=== PATIENT | male | born 1940 | race Caucasian/White ===

== ENCOUNTER → 2017-09-14 10:58 | Emergency (ER) | payer MEDICARE ==
[~2017-09-14 10:58] MED LIST: NS 0.9% 1000 ML* 2,000 ML IV ONE
[2017-09-14 11:35] LABS: ABS Basophils 0 10^3/ul (0-0.2); ABS Eosinophils 0 10^3/ul (0-0.6); ABS Lymphocytes 0.1 10^3/ul (1.0-4.8); ABS Monocytes 0.3 10^3/ul (0-0.8); ABS Neutrophils 2.4 10^3/ul (1.5-7.7); ABS Nucleated RBC 0 10^3/ul; Eosinophil % 0.4 % (0-6); Hematocrit 40 % (42-52); Hemoglobin 13.7 g/dl (14.0-18.0); Lymphocyte % 3.1 % (25-47); Mean Corpuscular HGB Conc 34 g/dl (31-36); Mean Corpuscular Hemoglobin 31 pg (27-31); Mean Corpuscular Volume 90 fL (80-94); Mean Platelet Volume 6.8 um3 (7.4-10.4); Nucleated Red Blood Cells % 0.1; Platelet Count 257 10^3/ul (150-450); Red Blood Count 4.46 10^6/ul (4.00-5.40); Red Cell Distribution Width 15 % (10.5-15); White Blood Count 2.9 10^3/ul (3.5-10.8)
[2017-09-14 11:47] LABS: INR 1.04 (0.77-1.02)
[2017-09-14 11:56] LABS: EGFR Non-African American 78.4 (>60)
[2017-09-14 13:41] LABS: Urine Appearance Clear; Urine Blood Negative (Negative); Urine Color Yellow; Urine Ketones 1+ (Negative); Urine Protein 1+(30 mg/dL) (Negative); Urine Specific Gravity 1.025 (1.010-1.030); Urine Urobilinogen Negative (Negative)
[2017-09-14 15:00] VITALS: BP 116/70
--- NOTE | 2017-09-14 15:25 | ED ---
Nhung Daniel Edward, scribed for Wiliam Marina MD on 09/14/17 at 1111 . GI/ HPI - HPI Summary HPI Summary: pt woke up this morning and had 3 bowel accidents; after radiation this morning had another bowel accident on the way home. Associated sx: decreased appetite, weakness, intermittent lightheadedness. For the past 4 days the pt has had similar episodes each morning. Described as watery stool; no blood in stool. Pt is a colon-rectal CA patient. Pt finished 6 weeks radiation this morning. 2 weeks of chemo previously. FHx - CHF (grandfather). Urinary symptoms - pt is only able to urinate small amounts. - History of Current Complaint Time Seen by Provider: 09/14/17 11:05 Stated Complaint: WEAKNESS Hx Obtained From: Patient Onset/Duration: Started Days Ago Timing: Intermittent Associated Signs and Symptoms: Positive: Weakness, Diarrhea, Change in Appetite - decreased, Lightheadedness, Other: - urinary symptoms - small amounts - Allergy/Home Medications Allergies/Adverse Reactions: Allergies Allergy/AdvReac Type Severity Reaction Status Date / Time No Known Allergies Allergy Verified 10/31/15 15:15 Home Medications: Home Medications Gluc Ac/Chondro Ac A/Vit C/Mn [Glucosamine Chondroitin] 1 tab PO BID 09/14/17 [ History Confirmed 09/14/17] PMH/Surg Hx/FS Hx/Imm Hx Previously Healthy: No Cardiovascular History: Reports: Hx Hypertension - Cancer History Cancer Type, Location and Year: colon-rectal CA - Surgical History Surgery Procedure, Year, and Place: Hernia, Kidney stones removed Infectious Disease History: Denies: Traveled Outside the [place] in Last 30 Days - Family History Known Family History: Positive: Cardiac Disease - CHF - grandfather, Hypertension - Social History Alcohol Use: Occasionally Hx Substance Use: No Substance Use Type: Reports: None Hx Tobacco Use: No Smoking Status (MU): Never Smoked Tobacco Review of Systems Constitutional: Negative Eyes: Negative ENT: Negative Cardiovascular: Negative Respiratory: Negative Positive: Diarrhea. Negative: Abdominal Pain Genitourinary: Negative Musculoskeletal: Negative Skin: Negative Neurological: Other - lightheadedness Positive: Weakness Psychological: Normal All Other Systems Reviewed And Are Negative: Yes Physical Exam Triage Information Reviewed: Yes Vital Signs On Initial Exam: Initial Vitals Pulse BP Pulse Ox 105 150/88 92 09/14/17 11:03 09/14/17 11:03 09/14/17 11:03 Vital Signs Reviewed: Yes Appearance: Positive: No Pain Distress, Thin Skin: Positive: Warm, Skin Color Reflects Adequate Perfusion, Dry Head/Face: Positive: Normal Head/Face Inspection Eyes: Positive: EOMI, MAIN ENT: Positive: Normal ENT inspection Dental: Positive: Other - Oral mucosa dry Neck: Positive: Supple, Nontender Respiratory/Lung Sounds: Positive: Clear to Auscultation, Breath Sounds Present Cardiovascular: Positive: RRR Abdomen Description: Positive: Nontender, Soft Bowel Sounds: Positive: Present Musculoskeletal: Positive: Normal, Strength/ROM Intact Neurological: Positive: Sensory/Motor Intact, Alert, Oriented to Person Place, Time Psychiatric: Positive: Affect/Mood Appropriate Diagnostics - Vital Signs Vital Signs Temp Pulse Resp BP Pulse Ox 09/14/17 14:59 98.9 F 74 14 116/70 98 09/14/17 13:03 102 98/71 98 09/14/17 13:00 100 98 09/14/17 12:33 100 130/71 97 09/14/17 12:16 98 126/66 09/14/17 12:09 105 129/66 99 09/14/17 12:08 112 120/77 100 09/14/17 12:03 101 152/75 98 09/14/17 12:00 95 99 09/14/17 11:54 94 132/72 09/14/17 11:33 96 132/72 98 09/14/17 11:10 98.8 F 105 15 150/88 98 09/14/17 11:03 105 150/88 92 - Laboratory Lab Results: Lab Results 09/14/17 09/14/17 09/14/17 Range/Units 11:23 11:23 11:23 WBC 2.9 L (3.5-10.8) 10^3/ul RBC 4.46 (4.00-5.40) 10^6/ul Hgb 13.7 L (14.0-18.0) g/dl Hct 40 L (42-52) % MCV 90 (80-94) fL MCH 31 (27-31) pg MCHC 34 (31-36) g/dl RDW 15 (10.5-15) % Plt Count 257 (150-450) 10^3/ul MPV 6.8 L (7.4-10.4) um3 Neut % (Auto) 84.7 H (38-83) % Lymph % (Auto) 3.1 L (25-47) % [place] % (Auto) 11.5 H (0-7) % Eos % (Auto) 0.4 (0-6) % Baso % (Auto) 0.3 (0-2) % Absolute Neuts (auto) 2.4 (1.5-7.7) 10^3/ul Absolute Lymphs (auto) 0.1 L (1.0-4.8) 10^3/ul Absolute Monos (auto) 0.3 (0-0.8) 10^3/ul Absolute Eos (auto) 0 (0-0.6) 10^3/ul Absolute Basos (auto) 0 (0-0.2) 10^3/ul Absolute Nucleated RBC 0 10^3/ul Nucleated RBC % 0.1 INR (Anticoag Therapy) 1.04 H (0.77-1.02) APTT 29.3 (26.0-36.3) seconds Sodium (135-145) mmol/L Potassium (3.5-5.0) mmol/L Chloride (101-111) mmol/L Carbon Dioxide (22-32) mmol/L Anion Gap (2-11) mmol/L BUN (6-24) mg/dL Creatinine (0.67-1.17) mg/dL Est GFR ( Amer) (>60) Est GFR (Non-Af Amer) (>60) BUN/Creatinine Ratio (8-20) Glucose (70-100) mg/dL Lactic Acid (0.5-2.0) mmol/L Calcium (8.6-10.3) mg/dL Magnesium (1.9-2.7) mg/dL Total Bilirubin (0.2-1.0) mg/dL AST (13-39) U/L ALT (7-52) U/L Alkaline Phosphatase (34-104) U/L C-Reactive Protein (<8.01) mg/L B-Natriuretic Peptide ( - 100) pg/mL Total Protein (6.4-8.9) g/dL Albumin (3.2-5.2) g/dL Globulin (2-4) g/dL Albumin/Globulin Ratio (1-3) Lipase (11.0-82.0) U/L Urine Color Yellow Urine Appearance Clear Urine pH 5.0 (5-9) Ur Specific [place] 1.025 (1.010-1.030) Urine Protein 1+(30 mg/dl) A (Negative) Urine Ketones 1+ A (Negative) Urine Blood Negative (Negative) Urine Nitrate Negative (Negative) Urine Bilirubin Negative (Negative) Urine Urobilinogen Negative (Negative) Ur Leukocyte Esterase Negative (Negative) Urine WBC (Auto) Trace(0-5/hpf) (Absent) Urine RBC (Auto) Trace(0-2/hpf) (Absent) Urine Bacteria Absent (Absent) Urine Sperm Present A (Absent) Urine Glucose Negative (Negative) Urine Ascorbic Acid * A (Negative) 09/14/17 09/14/17 09/14/17 Range/Units 11:23 11:23 11:23 WBC (3.5-10.8) 10^3/ul RBC (4.00-5.40) 10^6/ul Hgb (14.0-18.0) g/dl Hct (42-52) % MCV (80-94) fL MCH (27-31) pg MCHC (31-36) g/dl RDW (10.5-15) % Plt Count (150-450) 10^3/ul MPV (7.4-10.4) um3 Neut % (Auto) (38-83) % Lymph % (Auto) (25-47) % [place] % (Auto) (0-7) % Eos % (Auto) (0-6) % Baso % (Auto) (0-2) % Absolute Neuts (auto) (1.5-7.7) 10^3/ul Absolute Lymphs (auto) (1.0-4.8) 10^3/ul Absolute Monos (auto) (0-0.8) 10^3/ul Absolute Eos (auto) (0-0.6) 10^3/ul Absolute Basos (auto) (0-0.2) 10^3/ul Absolute Nucleated RBC 10^3/ul Nucleated RBC % INR (Anticoag Therapy) (0.77-1.02) APTT (26.0-36.3) seconds Sodium 136 (135-145) mmol/L Potassium 3.5 (3.5-5.0) mmol/L Chloride 100 L (101-111) mmol/L Carbon Dioxide 22 (22-32) mmol/L Anion Gap 14 H (2-11) mmol/L BUN 28 H (6-24) mg/dL Creatinine 0.94 (0.67-1.17) mg/dL Est GFR ( Amer) 94.9 (>60) Est GFR (Non-Af Amer) 78.4 (>60) BUN/Creatinine Ratio 29.8 H (8-20) Glucose 143 H (70-100) mg/dL Lactic Acid 2.0 (0.5-2.0) mmol/L Calcium 9.3 (8.6-10.3) mg/dL Magnesium 1.9 (1.9-2.7) mg/dL Total Bilirubin 0.70 (0.2-1.0) mg/dL AST 23 (13-39) U/L ALT 36 (7-52) U/L Alkaline Phosphatase 77 (34-104) U/L C-Reactive Protein 6.95 (<8.01) mg/L B-Natriuretic Peptide 54 ( - 100) pg/mL Total Protein 7.0 (6.4-8.9) g/dL Albumin 3.9 (3.2-5.2) g/dL Globulin 3.1 (2-4) g/dL Albumin/Globulin Ratio 1.3 (1-3) Lipase 18 (11.0-82.0) U/L Urine Color Urine Appearance Urine pH (5-9) Ur Specific [place] (1.010-1.030) Urine Protein (Negative) Urine Ketones (Negative) Urine Blood (Negative) Urine Nitrate (Negative) Urine Bilirubin (Negative) Urine Urobilinogen (Negative) Ur Leukocyte Esterase (Negative) Urine WBC (Auto) (Absent) Urine RBC (Auto) (Absent) Urine Bacteria (Absent) Urine Sperm (Absent) Urine Glucose (Negative) Urine Ascorbic Acid (Negative) Result Diagrams: 09/14/17 11:23 09/14/17 11:23 Lab Statement: Any lab studies that have been ordered have been reviewed, and results considered in the medical decision making process. - EKG 1 EKG Interpretation: NSR @ [address], no ectopy GIGU Course/Dx - Course Course Of Treatment: DISCUSSED WITH DR PEÑA, RADIATION ONCOLOGY, AND DR JOSEPH, ONCOLOGY. PATIENT IMPROVED IN ED. DISCUSSED RESULTS WITH THE PATIENT AND FAMILY. DISCUSSED INCREASING IMMODIUM. PATIENT FEELS COMFORTABLE GOING HOME. RETURN TO ED IF WORSE. - Diagnoses Provider Diagnoses: Diarrhea, Dehydration - Physician Notifications Discussed Care Of Patient With: Jean Joseph Time Discussed With Above Provider: 11:25 Discharge - Sign-Out/Discharge Documenting (check all that apply): Discharge/Admit/Transfer - Discharge Plan Condition: Stable Disposition: HOME Patient Education Materials: Loperamide (By mouth), Dehydration (ED), Acute Diarrhea (ED) Referrals: Vinicio Montalvo MD [Primary Care Provider] - Faustino Peña MD [Medical Doctor] - Jean Joseph MD [Medical Doctor] - Additional Instructions: FOLLOW UP WITH YOUR DOCTOR. RETURN TO THE EMERGENCY DEPARTMENT FOR ANY WORSENING OF YOUR CONDITION OR QUESTIONS OR CONCERNS. - Billing Disposition and Condition Condition: STABLE Disposition: Home The documentation as recorded by the Nhung zarate Edward accurately reflects the service I personally performed and the decisions made by me, Wiliam Marina MD.
--- NOTE | 2017-09-15 08:46 | ED ---
Progress - Progress Note Progress Note: Patient's stool culture is positive by immunoassay. His is negative for C. difficile. Still pending Shiga toxins and ova and parasite tests. Patient presents with persistent diarrhea status post chemotherapy for colorectal cancer. He was advised to increase his Imodium. No change in treatment at this time. Course/Dx - Course Course Of Treatment: DISCUSSED WITH DR PEÑA, RADIATION ONCOLOGY, AND DR JOSEPH, ONCOLOGY. PATIENT IMPROVED IN ED. DISCUSSED RESULTS WITH THE PATIENT AND FAMILY. DISCUSSED INCREASING IMMODIUM. PATIENT FEELS COMFORTABLE GOING HOME. RETURN TO ED IF WORSE. - Diagnoses Provider Diagnoses: Diarrhea, Dehydration - Provider Notifications Time Discussed With Above Provider: 11:25 Discharge - Sign-Out/Discharge Documenting (check all that apply): Post-Discharge Follow Up - Discharge Plan Condition: Stable Disposition: HOME Patient Education Materials: Loperamide (By mouth), Dehydration (ED), Acute Diarrhea (ED) Referrals: Vinicio Montalvo MD [Primary Care Provider] - Faustino Peña MD [Medical Doctor] - Jean Joseph MD [Medical Doctor] - Additional Instructions: FOLLOW UP WITH YOUR DOCTOR. RETURN TO THE EMERGENCY DEPARTMENT FOR ANY WORSENING OF YOUR CONDITION OR QUESTIONS OR CONCERNS. - Billing Disposition and Condition Condition: STABLE Disposition: Home
== END | disposition home or self-care (01) ==
LOC: ED 10:58
DX: R19.7 Diarrhea, unspecified (principal); E86.0 Dehydration; Z85.038 Personal history of other malignant neoplasm of large intestine; I10 Essential (primary) hypertension
CPT/HCPCS: 36415; 80053; 81003; 81015; 82270; 83605; 83630; 83690; 83735; 83880; 85025; 85610; 85730; 86140; 87045; 87046; 87086; 87328; 87329; 87493; 87899; 93005; 96374; 99283

== ENCOUNTER 2017-09-17 09:01 | Inpatient (IN) | payer MEDICARE ==
[2017-09-17] MEDS ORDERED: NS 0.9% 1000 ML* 2,000 ML IV ONE (09:15)
[2017-09-17] MEDS ORDERED: Meclizine TAB* 12.5 MG PO ONE (09:15)
--- NOTE | 2017-09-17 09:43 | RAD ---
INDICATION: Head injury. COMPARISON: There are no prior studies available for comparison. TECHNIQUE: Contiguous axial sections of the brain were obtained from the skull base to the vertex without contrast. FINDINGS: The ventricles, cisterns and sulci are enlarged consistent with diffuse atrophy. No significant focal abnormality or mass effect is seen. There is no evidence for hemorrhage. No significant focal osseous abnormality is seen. The visualized portion of the paranasal sinuses and mastoid air cells appear clear. IMPRESSION: NO EVIDENCE FOR ACUTE INTRACRANIAL ABNORMALITY.
[2017-09-17 09:51] LABS: Hematocrit 36 % (42-52); Hemoglobin 12.4 g/dl (14.0-18.0); Mean Corpuscular HGB Conc 34 g/dl (31-36); Mean Corpuscular Hemoglobin 31 pg (27-31); Mean Corpuscular Volume 90 fL (80-94); Mean Platelet Volume 6.6 um3 (7.4-10.4); Platelet Count 166 10^3/ul (150-450); Red Blood Count 4.03 10^6/ul (4.00-5.40); Red Cell Distribution Width 15 % (10.5-15); White Blood Count 1.2 10^3/ul (3.5-10.8)
--- NOTE | 2017-09-17 09:51 | RAD ---
INDICATION: Trauma. COMPARISON: Comparison is made with a prior CT of the chest, abdomen and pelvis from July 06, 2017. TECHNIQUE: Contiguous axial sections were obtained from the skull base through the T3 vertebra. Images were reconstructed in the sagittal and coronal planes. FINDINGS: There is straightening of the cervical spine with loss of the normal cervical lordosis. No prevertebral soft tissue swelling is seen. There is a mild compression fracture of the superior endplate of the T3 vertebral body which is unchanged from the prior exam. No acute fracture is seen. At the C4-C5 level there is mild posterior uncinate process spurring. No significant spinal canal narrowing is seen. There is mild bilateral neural foraminal narrowing. At the C5-C6 level there is mild posterior uncinate process spurring. There is mild spinal canal narrowing and moderate bilateral neural foraminal narrowing. At the C6-C7 level there is mild posterior uncinate process spurring. No significant spinal canal narrowing is present. There is mild to moderate bilateral neural foraminal narrowing.. The lung apices appear clear. IMPRESSION: 1. NO EVIDENCE FOR ACUTE FRACTURE. THERE IS A MILD CHRONIC COMPRESSION FRACTURE OF THE SUPERIOR ENDPLATE OF THE T3 VERTEBRAL BODY WHICH IS UNCHANGED. 2. MILD TO MODERATE CERVICAL SPONDYLOSIS.
--- NOTE | 2017-09-17 09:52 | RAD ---
INDICATION: Syncope. COMPARISON: There are no prior studies available for comparison. TECHNIQUE: A portable view of the chest was obtained. The right costophrenic angle angle is cut off on the film. FINDINGS: Cardiac and mediastinal contours appear to be within normal limits. The lungs are underinflated and clear. No pleural effusion is seen. IMPRESSION: NO EVIDENCE FOR ACUTE DISEASE.
[2017-09-17 10:07] LABS: EGFR Non-African American 110.2 (>60)
[2017-09-17 10:09] LABS: INR 1.11 (0.77-1.02)
[2017-09-17 10:32] LABS: ABS Basophils 0 10^3/ul (0-0.2); ABS Eosinophils 0 10^3/ul (0-0.6); ABS Lymphocytes 0.1 10^3/ul (1.0-4.8); ABS Monocytes 0.5 10^3/ul (0-0.8); ABS Nucleated RBC 0 10^3/ul; Eosinophil % 1.3 % (0-6); Lymphocyte % 11.9 % (25-47); Nucleated Red Blood Cells % 0.2
[2017-09-17 10:33] LABS: ABS Neutrophils 0.6 10^3/ul (1.5-7.7)
--- NOTE | 2017-09-17 12:21 | RAD ---
INDICATION: Right ankle injury. TECHNIQUE: 3 views of the right ankle were obtained. FINDINGS: There is soft tissue swelling which is most prominent along the anterolateral aspect of the ankle. There is an oblique fracture of the distal fibula extending to the ankle joint. The distal fragment is slightly displaced one cortical diameter lateral relative to the proximal fragment. No other fractures are seen. IMPRESSION: OBLIQUE SLIGHTLY DISPLACED INTRA-ARTICULAR FRACTURE OF THE DISTAL FIBULA.
[2017-09-17 12:31] LABS: Urine Appearance Clear; Urine Blood 1+ (Negative); Urine Color Yellow; Urine Ketones 1+ (Negative); Urine Protein Negative (Negative); Urine Red Blood Cell 1+(3-5/hpf) (Absent); Urine Specific Gravity 1.013 (1.010-1.030); Urine Urobilinogen Negative (Negative); Urine White Blood Cell Absent (Absent)
[2017-09-17] MEDS ORDERED: oxyCODONE/Acetamin 5/325 MG* TAB PO PRN (14:14)
[2017-09-17] MEDS ORDERED: Al Hydrox/Mg Hydrox/Simet LIQ* 30 ML UDC PO PRN (14:14)
[2017-09-17] MEDS ORDERED: Ondansetron INJ* 2 MG/ML VIAL IV PRN (14:14)
[2017-09-17] MEDS ORDERED: Meclizine TAB* 12.5 MG PO PRN (14:16)
[2017-09-17] MEDS ORDERED: Magnesium Sulfate 1 GM IV* 1 GM/100 ML BAG IV ONE (14:17)
--- NOTE | 2017-09-17 16:04 | ED ---
Johnny Daniel Simon, scribed for Wiliam Marina MD on 09/17/17 at 0921 . Syncope/Near Syncope - HPI Summary HPI Summary: This patient is a 76 year old M presenting to [facility] with a chief complaint of syncope since 09/16/17. He endorses 3 syncopal episodes in the past 24 hours, with an associated minor right ankle injury. Most recent episode 0300 today. He states that this AM feels weak and unsteady. He endorses dry mouth, ankle pain and swelling, and generalized weakness. Pt denies diarrhea, nausea, VELASQUEZ, ear pain , melena, hematochezia, numbness, paresthesia, back pain, neck pain. Pt endorses episode of vertigo 3 years ago, notes may be similar sx. Pt describes sx as a spinning dizziness. He notes 2 minimal bowel movements since last ED visit. Ankle swelling. Endorses dry mouth. No dizziness currently. Pt endorses LOC 2x for an instant last night around 2300 and 0300. He stated he didnt feel strong enough to get up this AM. Pt added that he took meclizine yesterday , but is not sure if it improved sx. Pt endorses hitting back of head from 1st fall yesterday, and that ice reduced swelling in head. - History Of Current Complaint Chief Complaint: EDSyncope Time Seen by Provider: 09/17/17 09:02 Hx Obtained From: Patient Onset/Duration: Sudden Onset, Lasting Hours Timing: Intermittent Episode Lasting - an instant Context: Loss Of Consciousness Activity At Onset: Exertion Aggravating Factor(s): Position Change Alleviating Factor(s): Nothing Associated Signs And Symptoms: Decreased Oral Intake, Dizzy - "spinning", Weakness Related History: Similar Episode/Dx as - 3 years ago vertigo Frequency: Episodes x___ - 3, Episodes Lasting ____ (in Mins/Days/Weeks/Years) - "an instant" - Allergies/Home Medications Allergies/Adverse Reactions: Allergies Allergy/AdvReac Type Severity Reaction Status Date / Time No Known Allergies Allergy Verified 10/31/15 15:15 Home Medications: Home Medications Meclizine TAB* [Antivert 12.5 TAB*] 12.5 mg PO Q6HR PRN 09/17/17 [History Confirmed 09/17/17] Silver Sulfadiazine [Silvadene] 25 gm TOPICAL BID 09/17/17 [History Confirmed ] PMH/Surg Hx/FS Hx/Imm Hx Cardiovascular History: Reports: Hx Hypertension Sensory History: Denies: Hx Legally Blind Opthamlomology History: Denies: Hx Legally Blind EENT History: Denies: Hx Deafness Neurological History: Reports: Other Neuro Impairments/Disorders - vertigo - Cancer History Cancer Type, Location and Year: colon-rectal CA - Surgical History Surgery Procedure, Year, and Place: Hernia, Kidney stones removed Infectious Disease History: No Infectious Disease History: Denies: Traveled Outside the [place] in Last 30 Days - Family History Known Family History: Positive: Cardiac Disease - CHF - grandfather, Hypertension - Social History Alcohol Use: Occasionally Hx Substance Use: No Substance Use Type: Reports: None Hx Tobacco Use: No Smoking Status (MU): Never Smoked Tobacco Review of Systems Positive: Fatigue. Negative: Fever Negative: Ear Ache Negative: Diarrhea, Nausea, Other - melena, hematochezia Positive: Arthralgia - right foot and ankle, Myalgia - right foot and ankle, Edema Neurological: Other - dizziness/spinning Positive: Weakness, Syncope. Negative: Headache, Paresthesia, Numbness All Other Systems Reviewed And Are Negative: Yes Physical Exam - Summary Physical Exam Summary: General: well-appearing, no pain distress. Generalized weakness. Skin: warm, color reflects adequate perfusion, dry Head: normal Eyes: EOMI, MAIN ENT: dry oral mucosa Neck: supple, nontender Respiratory: CTA, breath sounds present Cardiovascular: RRR Abdomen: soft, nontender Bowel: present Musculoskeletal: strength/ROM intact. Lateral swelling right ankle and foot. Neurological: sensory/motor intact, A&O x3, no FND. Psychological: affect/mood appropriate Triage Information Reviewed: Yes Vital Signs On Initial Exam: Initial Vitals Temp Pulse Resp BP Pulse Ox 99.5 F 90 21 129/71 95 09/17/17 09:08 09/17/17 09:08 09/17/17 09:08 09/17/17 09:08 09/17/17 09:08 Vital Signs Reviewed: Yes Procedures - Splinting Right Lower Extremity Location: right ankle Hand-Made Type: fiberglass Splint: stirrup Pre-Proc Neuro Vasc Exam: normal Post-Proc Neuro Vasc Exam: normal, unchanged from pre-exam Diagnostics - Vital Signs Vital Signs Temp Pulse Resp BP Pulse Ox 09/17/17 09:08 99.5 F 90 21 129/71 95 - Laboratory Lab Results: Lab Results 09/17/17 09/17/17 09/17/17 Range/Units 09:40 09:40 09:40 WBC 1.2 L (3.5-10.8) 10^3/ul RBC 4.03 (4.00-5.40) 10^6/ul Hgb 12.4 L (14.0-18.0) g/dl Hct 36 L (42-52) % MCV 90 (80-94) fL MCH 31 (27-31) pg MCHC 34 (31-36) g/dl RDW 15 (10.5-15) % Plt Count 166 (150-450) 10^3/ul MPV 6.6 L (7.4-10.4) um3 Neut % (Auto) 50.1 (38-83) % Lymph % (Auto) 11.9 L (25-47) % [place] % (Auto) 36.4 H (0-7) % Eos % (Auto) 1.3 (0-6) % Baso % (Auto) 0.3 (0-2) % Absolute Neuts (auto) 0.6 L* (1.5-7.7) 10^3/ul Absolute Lymphs (auto) 0.1 L (1.0-4.8) 10^3/ul Absolute Monos (auto) 0.5 (0-0.8) 10^3/ul Absolute Eos (auto) 0 (0-0.6) 10^3/ul Absolute Basos (auto) 0 (0-0.2) 10^3/ul Absolute Nucleated RBC 0 10^3/ul Nucleated RBC % 0.2 Hem Pathologist Commnt Pending INR (Anticoag Therapy) 1.11 H (0.77-1.02) APTT 30.3 (26.0-36.3) seconds Sodium 136 (135-145) mmol/L Potassium 3.7 (3.5-5.0) mmol/L Chloride 101 (101-111) mmol/L Carbon Dioxide 29 (22-32) mmol/L Anion Gap 6 (2-11) mmol/L BUN 17 (6-24) mg/dL Creatinine 0.70 (0.67-1.17) mg/dL Est GFR ( Amer) 133.4 (>60) Est GFR (Non-Af Amer) 110.2 (>60) BUN/Creatinine Ratio 24.3 H (8-20) Glucose 119 H (70-100) mg/dL Lactic Acid (0.5-2.0) mmol/L Calcium 8.5 L (8.6-10.3) mg/dL Magnesium 1.8 L (1.9-2.7) mg/dL Total Bilirubin 0.50 (0.2-1.0) mg/dL AST 17 (13-39) U/L ALT 24 (7-52) U/L Alkaline Phosphatase 71 (34-104) U/L Total Creatine Kinase 52 (10-223) U/L CK-MB (CK-2) 1.8 (0.6-6.3) ng/mL Troponin I 0.00 (<0.04) ng/mL C-Reactive Protein 26.87 H (<8.01) mg/L Total Protein 6.0 L (6.4-8.9) g/dL Albumin 3.2 (3.2-5.2) g/dL Globulin 2.8 (2-4) g/dL Albumin/Globulin Ratio 1.1 (1-3) Lipase 11 (11.0-82.0) U/L TSH 0.91 (0.34-5.60) mcIU/mL Urine Color Urine Appearance Urine pH (5-9) Ur Specific [place] (1.010-1.030) Urine Protein (Negative) Urine Ketones (Negative) Urine Blood (Negative) Urine Nitrate (Negative) Urine Bilirubin (Negative) Urine Urobilinogen (Negative) Ur Leukocyte Esterase (Negative) Urine WBC (Auto) (Absent) Urine RBC (Auto) (Absent) Urine Bacteria (Absent) Urine Glucose (Negative) 09/17/17 09/17/17 Range/Units 09:40 12:14 WBC (3.5-10.8) 10^3/ul RBC (4.00-5.40) 10^6/ul Hgb (14.0-18.0) g/dl Hct (42-52) % MCV (80-94) fL MCH (27-31) pg MCHC (31-36) g/dl RDW (10.5-15) % Plt Count (150-450) 10^3/ul MPV (7.4-10.4) um3 Neut % (Auto) (38-83) % Lymph % (Auto) (25-47) % [place] % (Auto) (0-7) % Eos % (Auto) (0-6) % Baso % (Auto) (0-2) % Absolute Neuts (auto) (1.5-7.7) 10^3/ul Absolute Lymphs (auto) (1.0-4.8) 10^3/ul Absolute Monos (auto) (0-0.8) 10^3/ul Absolute Eos (auto) (0-0.6) 10^3/ul Absolute Basos (auto) (0-0.2) 10^3/ul Absolute Nucleated RBC 10^3/ul Nucleated RBC % Hem Pathologist Commnt INR (Anticoag Therapy) (0.77-1.02) APTT (26.0-36.3) seconds Sodium (135-145) mmol/L Potassium (3.5-5.0) mmol/L Chloride (101-111) mmol/L Carbon Dioxide (22-32) mmol/L Anion Gap (2-11) mmol/L BUN (6-24) mg/dL Creatinine (0.67-1.17) mg/dL Est GFR ( Amer) (>60) Est GFR (Non-Af Amer) (>60) BUN/Creatinine Ratio (8-20) Glucose (70-100) mg/dL Lactic Acid 1.2 (0.5-2.0) mmol/L Calcium (8.6-10.3) mg/dL Magnesium (1.9-2.7) mg/dL Total Bilirubin (0.2-1.0) mg/dL AST (13-39) U/L ALT (7-52) U/L Alkaline Phosphatase (34-104) U/L Total Creatine Kinase (10-223) U/L CK-MB (CK-2) (0.6-6.3) ng/mL Troponin I (<0.04) ng/mL C-Reactive Protein (<8.01) mg/L Total Protein (6.4-8.9) g/dL Albumin (3.2-5.2) g/dL Globulin (2-4) g/dL Albumin/Globulin Ratio (1-3) Lipase (11.0-82.0) U/L TSH (0.34-5.60) mcIU/mL Urine Color Yellow Urine Appearance Clear Urine pH 6.0 (5-9) Ur Specific [place] 1.013 (1.010-1.030) Urine Protein Negative (Negative) Urine Ketones 1+ A (Negative) Urine Blood 1+ A (Negative) Urine Nitrate Negative (Negative) Urine Bilirubin Negative (Negative) Urine Urobilinogen Negative (Negative) Ur Leukocyte Esterase Negative (Negative) Urine WBC (Auto) Absent (Absent) Urine RBC (Auto) 1+(3-5/hpf) A (Absent) Urine Bacteria Absent (Absent) Urine Glucose Negative (Negative) Result Diagrams: 09/17/17 09:40 09/17/17 09:40 Lab Statement: Any lab studies that have been ordered have been reviewed, and results considered in the medical decision making process. - Radiology CXR Xray Interpretation: No Acute Changes Radiology Interpretation Completed By: Radiologist - No evidence for acute disease. Dr. Marina has reviewed this report. Ankle Xray Interpretation: Positive (See Comments) Radiology Interpretation Completed By: Radiologist - OBLIQUE SLIGHTLY DISPLACED INTRA-ARTICULAR FRACTURE OF THE DISTAL FIBULA. Dr. Marina has reviewed this report. - CT C-spine CT Interpretation: Positive (See Comments) CT Interpretation Completed By: Radiologist - 1. NO EVIDENCE FOR ACUTE FRACTURE. THERE IS A MILD CHRONIC COMPRESSION FRACTURE OF THE SUPERIOR ENDPLATE OF THE T3 VERTEBRAL BODY WHICH IS UNCHANGED. 2. MILD TO MODERATE CERVICAL SPONDYLOSIS. Dr. Marina has reviewed this report. Brain CT Interpretation: No Acute Changes CT Interpretation Completed By: Radiologist - No evidence for acute intracranial abnormality. Dr. Marina has reviewed this report. - EKG 1026 Cardiac Rate: NL - 85 EKG Rhythm: Sinus Rhythm ST Segment: Normal Ectopy: None Course/Dx Course Of Treatment: RIGHT ANKLE SPLINTED WITH POSTERIOR AND STIRRUP SPLINTS. NEUROVASCULAR INTACT AFTER SPLINTING. PATIENT UNABLE TO SAFELY CARE FOR SELF AT HOME WITH GENERALIZED WEAKNESS AND RIGHT ANKLE FRACTURE. DISCUSSED WITH DR JOSEPH, ONCOLOGY. ADMIT HOSPITALIST. - Diagnoses Provider Diagnoses: Weakness, Closed right ankle fracture - Physician Notifications Discussed Care of Patient With: Jean Joseph Time Discussed With Above Provider: 12:25 Instructed by Provider To: Other - recommended admission to [facility]. Discharge - Sign-Out/Discharge Documenting (check all that apply): Discharge/Admit/Transfer - Discharge Plan Condition: Stable Disposition: ADMITTED TO [facility] - Billing Disposition and Condition Condition: STABLE Disposition: Admitted to [facility] Consult Consult: Accepted admission to [facility]. The documentation as recorded by the Johnny zarate Simon accurately reflects the service I personally performed and the decisions made by me, Wiliam Marina MD.
[2017-09-17] MEDS: NS 0.9% 1000 ML* 1,000 ML IV SCH (16:41)
--- NOTE | 2017-09-17 17:25 | HP ---
CC: Vinicio Montalvo MD; Jean Shipley MD * HISTORY AND PHYSICAL: DATE OF ADMISSION: 09/17/17 TIME OF EVALUATION: 1500. PRIMARY CARE PHYSICIAN: Vinicio Montalvo MD ONCOLOGIST: Jean Shipley MD CHIEF COMPLAINT: Syncopal episode. HISTORY OF PRESENT ILLNESS: This is a 76-year-old male with a past medical history of rectal cancer, status post chemo and radiation, who presents to the emergency room with several episodes of syncope. The patient states he lives alone and yesterday around 1 p.m., he was standing and he felt dizzy. He fell to the ground, he quickly came to, but noticed that he had pain in his right ankle. He was able to walk, but it was very difficult for him. Last evening, he had 2 to 3 times where he went to the bathroom and on return back from the bathroom, he became lightheaded, dizzy, and had another syncopal episode and fell to the ground on carpeted mamta. He crawled on all fours to his bed. This morning, when he woke up, he sat up in bed and he was concerned that he was not going to be able to ambulate due to how lightheaded and dizzy he felt and decided to call EMS for further evaluation. The patient states he just finished 6 weeks of radiation and chemotherapy on 09/14/17. He has suffered complication of melara to his groin, penis, and buttock region. He has had a significant weight loss of 30 pounds since his diagnosis in April and has had decrease in appetite. He is afraid to eat as he has had significant amount of diarrhea, which causes him a lot of discomfort. His last bowel movement was yesterday. No nausea or vomiting. His mouth sores have improved. He is having some urinary pressure, some discomfort, but he is not clear if it is related to radiation treatment. No fevers at home, no cough, no chest pain, no shortness of breath, no abdominal pain, no other rash. In the emergency room, the patient had labs, imaging. He was found to have a right distal fibular fracture. He had a posterior splint with side bars placed in the emergency room. He was given 2 L of fluids, 25 mg of meclizine, and referred to the hospitalist service for further evaluation. AST MEDICAL HISTORY: 1. History of rectal cancer diagnosed in April 2017, followed by Dr. Shipley, just completed chemo and radiation; complications are melara to his genitourinary region and buttocks from the radiation therapy. 2. Hypertension. 3. Hyperlipidemia. 4. Arthritis. MEDICATIONS: 1. Silvadene 25 g topical twice a day to affected areas. 2. Meclizine 12.5 mg every 6 hours as needed. 3. PreserVision AREDS 2 Softgels 1 cap p.o. b.i.d. 4. Lisinopril 10 mg p.o. daily. 5. Aspirin 81 mg daily. 6. Carafate suspension 10 mL p.o. t.i.d. 7. Glucosamine/chondroitin 1 tab p.o. b.i.d. 8. Atorvastatin 20 mg p.o. daily. ALLERGIES: No known drug allergies. FAMILY HISTORY: Reviewed and noncontributory. SOCIAL HISTORY: As mentioned, the patient lives alone. No history of tobacco, alcohol, or illicit drug use. His healthcare proxy is his , Sofya White. He states he is a DNR/DNI and completed his forms in the oncology office, which I do not see in our system, but would recommend Oncology obtain these. REVIEW OF SYSTEMS: A 14-point review of systems as mentioned in the HPI, otherwise negative. PHYSICAL EXAMINATION GENERAL: No acute distress, resting comfortably, although the patient is not able to really reposition due to significant melara in his buttock region. VITAL SIGNS: T-max 99.5, pulse rate 87, respiratory rate 17, oxygen saturation 94% on room air, and blood pressure 116/63. HEENT: Head: Normocephalic. Pupils are equal and reactive, anicteric. Oropharynx: His mucous membranes moist. He does have mild mucositis in the right lateral tongue region. NECK: Supple. No lymphadenopathy. RESPIRATORY: Diminished breath sounds. No wheezing, rhonchi, or rales. CARDIAC: Regular rate and rhythm. Soft systolic murmur heard throughout. ABDOMEN: Positive bowel sounds. Soft, nontender, nondistended. EXTREMITIES: The patient with a splint in his right lower extremity. Normal cap refill. Sensation intact and able to move his toes. NEUROLOGIC: Alert and oriented x3. No gross focal neurologic deficits. DERM: The patient with findings of excoriated skin in his bilateral groin, penis region. I did not visualize the buttocks due to the patient's inability to roll on to his side. DIAGNOSTIC STUDIES/LAB DATA: White count 1.2, hemoglobin 12.4, hematocrit 36, platelets 166, ANC is 0.6. INR is 1.11. Sodium 136, potassium 3.7, chloride 101, bicarb 29, BUN 17, creatinine 0.7, glucose 119, mag is 1.8. Troponin is 0. Albumin is 3.2, lipase 11. TSH 0.91. UA: Ketones +1, blood +1. Radiographic data: Head CT: No evidence for acute intracranial abnormality. Cervical spine CT: No evidence for acute fracture. There was mild chronic compression fracture of the superior endplate of the T3 vertebral body, which is unchanged. [id number]-[id number] cervical spondylosis. Chest x-ray: No evidence for acute disease. Ankle x-ray: Oblique, slightly displaced intraarticular fracture of the distal fibula. EKG shows normal sinus rhythm. ASSESSMENT AND PLAN: This is a 76-year-old male with a past medical history of rectal cancer, status post chemo and radiation, who presents to the emergency room with syncopal episode, suffering a right ankle fibular fracture. 1. Syncope. Assessment: The patient's history and physical are most consistent with vasovagal syncope in the setting of hypovolemia from his chemoradiation and decreased appetite. His initial troponin was negative and EKG is unremarkable. Plan: We will admit him to [address] [place] [address] with telemetry. We will repeat a troponin. We will hold off on pursuing an echo at this time and defer to Oncology if they feel that this is indicated. We will check a UA in the setting of his urinary symptoms and continue him on IV fluids. We will hold his lisinopril. The patient may no longer tolerate lisinopril in the setting of his significant weight loss and we will sign out to Oncology to take over service in the morning. 2. Right distal fibular fracture. Assessment: The patient had a splint placed in the emergency room. I did speak with Dr. Dobbs, who is going to follow up with him tomorrow. The concern is the patient may not be able to get around at home as he lives alone and has stairs. Depending on Ortho's input, the patient may need to go to rehab. 3. Rectal cancer. The patient has completed chemo and radiation. He is neutropenic, likely due to his chemotherapy. No findings of a documented fever here or at home. We will hold off on further workup at this time. No findings of a focal infection. We will continue him on the Silvadene for his melara secondary to the radiation and place a Wound Care consult for any further recommendations. 4. Hypertension. As mentioned, hold his lisinopril. 5. Hyperlipidemia. Continue his Lipitor. 6. FEN: Continue regular diet. 7. DVT prophylaxis: The patient scores high risk. We will place him on heparin subcu t.i.d. 8. Code status: He states he is a DNR/DNI. He has filled out these forms. Recommend Oncology followup as they may have his MOLST form in their office. PATIENT TIME: Greater than 50 minutes was spent doing history and physical, more than half the time was spent in direct patient contact. [id number]/[facility] #: [id number] MARKOS
--- NOTE | 2017-09-17 17:28 | RAD ---
INDICATION: Traumatic fracture of the right ankle status post external reduction. COMPARISON: Comparison is made with a prior study from approximately 5 hours earlier. TECHNIQUE: 2 views of the right ankle were obtained. FINDINGS: The bones are visualized through a fiberglass cast limiting the bony detail. Again note is made of an oblique intra-articular fracture of the distal fibula. The fracture fragments are slightly distracted. The distal fragment is displaced approximately 1 cortical diameter posterior relative to the proximal fragment. IMPRESSION: OBLIQUE SLIGHTLY DISPLACED INTRA-ARTICULAR FRACTURE OF THE DISTAL FIBULA STATUS POST EXTERNAL REDUCTION.
[2017-09-17] MEDS ORDERED: Atorvastatin* 20 MG TAB PO SCH (18:00)
[2017-09-17] MEDS: Heparin VIAL(*) 5000 UNITS/ML VIAL (FIVE THOUSAND) SUBCUT SCH (20:45)
[2017-09-17] MEDS: Silver Sulfadiazine 1%* 20 GM TOPICAL SCH (20:45)
--- NOTE | 2017-09-17 21:32 | CONS ---
CONSULTATION REPORT: DATE OF CONSULT: 09/17/17 DIAGNOSIS: Right lateral malleolus fracture. HISTORY OF PRESENT ILLNESS: This is a 76-year-old male who was admitted to [facility] and specifically to the medical service complaining of right ankle discomfort. He has a history of colon carcinoma and he has just finished a course of radiation therapy and also chemotherapy. The patient states that one day prior to his admission to [facility], he had a blackout episode where he passed out and tumbled. The patient then had 2 subsequent episodes prior to his arrival at [facility] Emergency Room where he was seen in the ER and then admitted to the medical service. He did complain of right ankle discomfort; therefore, his ankle was imaged and it was noted that he had a short oblique mild to moderately displaced lateral malleolus fracture; however, the medial malleolus and tibia are intact. In addition, the mortise was also intact. He was appropriately splinted with posterior splint and side bars by the emergency room staff and he was admitted to the floor. PHYSICAL EXAM: He is a well-developed, well-nourished male, in minimal discomfort at rest. His right lower extremity was examined in a splint. He has moderate swelling and edema involving his right foot. Sensation was intact to the dorsum of his right foot. He has good color and the patient is able to move his toes without difficulty, without increased discomfort. IMPRESSION AND PLAN: His films were reviewed and indeed he has a lateral malleolus fracture minimally displaced. The mortise is intact. I would like for him to continue to be maintained in a posterior splint and side bars for approximately 10 days, after which he will most likely be converted to a short leg cast. He will be nonweightbearing at this time and all the patient's questions and his 's questions were answered to their full satisfaction. I believe that conservative intervention is indicated if at all possible for this 76-year-old male. [id number]/[facility] #: [id number] MARKOS
[2017-09-17] MEDS: Acetaminophen TAB* 325 MG PO PRN (23:50)
[2017-09-18] MEDS: NS 0.9% 1000 ML* 1,000 ML IV SCH (01:41)
[2017-09-18] MEDS: Heparin VIAL(*) 5000 UNITS/ML VIAL (FIVE THOUSAND) SUBCUT SCH ×3 (05:18→21:09)
[2017-09-18 06:20] LABS: Hematocrit 31 % (42-52); Hemoglobin 10.8 g/dl (14.0-18.0); Mean Corpuscular HGB Conc 35 g/dl (31-36); Mean Corpuscular Hemoglobin 32 pg (27-31); Mean Corpuscular Volume 90 fL (80-94); Mean Platelet Volume 6.5 um3 (7.4-10.4); Platelet Count 126 10^3/ul (150-450); Red Blood Count 3.45 10^6/ul (4.00-5.40); Red Cell Distribution Width 15 % (10.5-15); White Blood Count 1.2 10^3/ul (3.5-10.8)
[2017-09-18 06:23] LABS: ABS Basophils 0 10^3/ul (0-0.2); ABS Eosinophils 0 10^3/ul (0-0.6); ABS Lymphocytes 0.2 10^3/ul (1.0-4.8); ABS Monocytes 0.6 10^3/ul (0-0.8); ABS Neutrophils 0.4 10^3/ul (1.5-7.7); ABS Nucleated RBC 0 10^3/ul; Eosinophil % 1.9 % (0-6); Lymphocyte % 16.2 % (25-47); Nucleated Red Blood Cells % 0.1
[2017-09-18 06:38] LABS: EGFR Non-African American 131.7 (>60)
[2017-09-18] MEDS: Aspirin 81 mg CHEW TAB* 81 MG TAB.CHEW PO SCH (09:08)
[2017-09-18] MEDS: Silver Sulfadiazine 1%* 20 GM TOPICAL SCH ×2 (09:09→19:40)
[2017-09-18] MEDS ORDERED: Loperamide CAP* 2 MG PO PRN (10:11)
[2017-09-18] MEDS ORDERED: Loperamide CAP* 2 MG PO ONE (10:11)
--- NOTE | 2017-09-18 10:22 | PN ---
Progress Note - Progress Note Date of Service: 09/18/17 SOAP: Subjective: []Still feeling poorly. Seen H+P for details of presentation. Not eating well, mouth soars and still with uncontrolled diarrhea. Feels weak. Had fever last night and temperature of 100.6. Has had mouth soars, difficulty swallowing. Pain with skin breakdown. Acetaminophen (Tylenol Tab*) 650 mg PO Q4H PRN PRN Reason: FEVER/PAIN Last Admin: 09/17/17 23:50 Dose: 650 mg Al Hydrox/Mg Hydrox/Simethicone (Maalox Plus*) 30 ml PO Q6H PRN PRN Reason: INDIGESTION Aspirin (Aspirin 81 Mg Chew Tab*) 81 mg PO DAILY [facility] Last Admin: 09/18/17 09:08 Dose: 81 mg Heparin Sodium (Porcine) (Heparin Vial(*)) 5,000 units SUBCUT Q8HR [facility] Last Admin: 09/18/17 05:18 Dose: 5,000 units Hydromorphone HCl (Dilaudid Inj*) 0.5 mg IV SLOW PU Q4H PRN PRN Reason: PAIN Potassium Chloride/Sodium Chloride (Ns 0.9% W/ 40 Meq Kcl 1000 Ml*) 1,000 mls @ 150 mls/hr IV PER RATE [facility] Magnesium Sulfate 2 gm/ Sodium (Chloride) 104 mls @ 104 mls/hr IV ONCE ONE Stop: 09/18/17 11:29 Cefepime HCl (Maxipime 2 Gm In Dextrose Duplex (*)) 2 gm in 50 mls @ 100 mls/ hr IV Q8H [facility] Fluconazole/Sodium Chloride (Diflucan 200 Mg Ivpremix(*)) 200 mg in 100 mls @ 100 mls/hr IVPB Q24H [facility] Loperamide HCl (Imodium Cap*) 4 mg PO ONCE ONE Stop: 09/18/17 10:12 Loperamide HCl (Imodium Cap*) 2 mg PO .SEE DIRECTIONS PRN PRN Reason: DIARRHEA Ondansetron HCl (Zofran Inj*) 4 mg IV Q4H PRN PRN Reason: NAUSEA/VOMITING Silver Sulfadiazine (Silvadine 1%*) 1 applic TOPICAL BID [facility] Last Admin: 09/18/17 09:09 Dose: 1 applic Objective: [] Vital Signs Temp Pulse Resp BP Pulse Ox 98.2 F 78 16 110/56 97 09/18/17 03:38 09/18/17 03:38 09/18/17 03:38 09/18/17 03:50 09/18/17 03:38 HEENT - Thrush, pale CTA RRR S1S2 +BS no HSM, ND NT Skin breakdown groin, penis and rectum. diffuse and with some ulceration. Ext - warm to touch Assessment: []76 year old status post chemotherapy and radiation for anal cancer. Completed XRT on 09/14/17 and had second cycle of chemotherapy including mitomycin 09/04/17. Presentation with syncopy, dehydration, diarrhea, skin breakdown and mouth soars. He is neutropenic and had a fever last night. Plan: []1. NF. Blood cultures x 2, CXR, UA and Cefepime 2 gm IV q 8. 2. Thrush on exam, Fluconizole 200 mg IV daily 3. Skin breakdown. Continue Silvadine, follow 4. Diarrhea. Immodium 4 mg x 1 now and then 2 mg prn with loose stool. 5. Syncope. Likely dehydration, IVF. Push oral intake as mouth soars improve 6. Cytopenia. Second to therapy. Follow and transfuse as needed. 7. FEN. NS at 150 and replete Mg and K 8. Pain. Dilaudid 0.5 q 4 prn and will titrate. 9. MOLST reviewed and DNR/DNI
[2017-09-18] MEDS ORDERED: Magnesium Sulfate IV* 2 GM in NS 0.9% 100 ML* 100 ML IV ONE (10:30)
[2017-09-18] MEDS ORDERED: NS 0.9% 100 ML* 0 ML ONE (10:55)
[2017-09-18] MEDS: Fluconazole 200 MG IVPREMIX(*) 200 MG/100 ML BAG IVPB SCH (12:36)
[2017-09-18] MEDS: NS 0.9% w/ 40 Meq KCL 1000 ML* 1,000 ML IV SCH ×2 (12:42→19:33)
[2017-09-18] MEDS: Cefepime 2 GM in Dextrose(*) 2 GM/50 ML BAG IV SCH ×2 (14:01→19:33)
--- NOTE | 2017-09-18 15:41 | RAD ---
INDICATION: Fever COMPARISON: September 29, 2017 TECHNIQUE: An AP supine portable view obtained at 1527 hours is submitted. FINDINGS: Bones/Soft Tissues: There are no acute bony findings. Cardiomediastinal: The cardiomediastinal silhouette is normal. Lungs: There are no infiltrates. Pleura: There are no pleural effusions. Other: None IMPRESSION: NO ACTIVE DISEASE.
[2017-09-18] MEDS: Acetaminophen TAB* 325 MG PO PRN (16:45)
[2017-09-18 19:03] LABS: Urine Appearance Clear; Urine Blood 1+ (Negative); Urine Color Yellow; Urine Ketones Negative (Negative); Urine Protein Negative (Negative); Urine Red Blood Cell Absent (Absent); Urine Specific Gravity 1.012 (1.010-1.030); Urine Urobilinogen Negative (Negative); Urine White Blood Cell Trace(0-5/hpf) (Absent)
[2017-09-19] MEDS: NS 0.9% w/ 40 Meq KCL 1000 ML* 1,000 ML IV SCH ×3 (03:01→19:49)
[2017-09-19] MEDS: Cefepime 2 GM in Dextrose(*) 2 GM/50 ML BAG IV SCH ×3 (03:11→19:49)
[2017-09-19] MEDS: HYDROmorphone INJ* 0.5 MG/0.5 ML SYRINGE IV SLOW PU PRN (03:11)
[2017-09-19] MEDS: Heparin VIAL(*) 5000 UNITS/ML VIAL (FIVE THOUSAND) SUBCUT SCH ×3 (05:34→21:38)
[2017-09-19 08:24] LABS: Hematocrit 31 % (42-52); Hemoglobin 10.7 g/dl (14.0-18.0); Mean Corpuscular HGB Conc 35 g/dl (31-36); Mean Corpuscular Hemoglobin 31 pg (27-31); Mean Corpuscular Volume 91 fL (80-94); Platelet Count 111 10^3/ul (150-450); Red Cell Distribution Width 16 % (10.5-15); White Blood Count 1.2 10^3/ul (3.5-10.8)
[2017-09-19 08:48] LABS: EGFR Non-African American 162.5 (>60)
[2017-09-19 09:12] LABS: ABS Basophils 0 10^3/ul (0-0.2); ABS Eosinophils 0 10^3/ul (0-0.6); ABS Lymphocytes 0.3 10^3/ul (1.0-4.8); ABS Monocytes 0.5 10^3/ul (0-0.8); ABS Neutrophils 0.4 10^3/ul (1.5-7.7); ABS Nucleated RBC 0 10^3/ul; Eosinophil % 3.5 % (0-6); Lymphocyte % 21.9 % (25-47); Nucleated Red Blood Cells % 0
[2017-09-19] MEDS: Aspirin 81 mg CHEW TAB* 81 MG TAB.CHEW PO SCH (09:18)
[2017-09-19] MEDS: Silver Sulfadiazine 1%* 20 GM TOPICAL SCH ×2 (09:19→19:50)
[2017-09-19] MEDS: Fluconazole 200 MG IVPREMIX(*) 200 MG/100 ML BAG IVPB SCH (10:53)
[2017-09-19] MEDS: Diphenoxylat/Atrop 2.5-0.025M* 1 TAB PO PRN (12:09)
[2017-09-19] MEDS: Magic Mouth Was-BEN/MAAL/LIDO SWISH SPIT SCH ×3 (13:53→19:50)
--- NOTE | 2017-09-19 15:55 | PN ---
Progress Note - Progress Note Date of Service: 09/19/17 SOAP: Subjective: []Pt. seen and examined this AM, approx. 11:30. Continues to have urgency of bowels, worse right after eating. Excoriated tissue from radiation is improving with silvadene. Urinating OK. Eating OK, but mouth bothering him. No overt nausea/vomiting. Frustrated with multiple providers. Often feels like communication is terrible. Medications: Acetaminophen (Tylenol Tab*) 650 mg PO Q4H PRN PRN Reason: FEVER/PAIN Last Admin: 09/18/17 16:45 Dose: 650 mg Al Hydrox/Mg Hydrox/Simethicone (Maalox Plus*) 30 ml PO Q6H PRN PRN Reason: INDIGESTION Aspirin (Aspirin 81 Mg Chew Tab*) 81 mg PO DAILY [facility] Last Admin: 09/19/17 09:18 Dose: 81 mg Diphenoxylate HCl/Atropine (Lomotil Tab*) 1 tab PO TID PRN PRN Reason: DIARRHEA Last Admin: 09/19/17 12:09 Dose: 1 tab Heparin Sodium (Porcine) (Heparin Vial(*)) 5,000 units SUBCUT Q8HR [facility] Last Admin: 09/19/17 12:11 Dose: 5,000 units Hydromorphone HCl (Dilaudid Inj*) 0.5 mg IV SLOW PU Q4H PRN PRN Reason: PAIN Last Admin: 09/19/17 03:11 Dose: 0.5 mg Potassium Chloride/Sodium Chloride (Ns 0.9% W/ 40 Meq Kcl 1000 Ml*) 1,000 mls @ 150 mls/hr IV PER RATE [facility] Last Admin: 09/19/17 10:53 Dose: 150 mls/hr Cefepime HCl (Maxipime 2 Gm In Dextrose Duplex (*)) 2 gm in 50 mls @ 100 mls/ hr IV Q8H [facility] Last Admin: 09/19/17 12:12 Dose: 100 mls/hr Fluconazole/Sodium Chloride (Diflucan 200 Mg Ivpremix(*)) 200 mg in 100 mls @ 100 mls/hr IVPB Q24H [facility] Last Admin: 09/19/17 10:53 Dose: 100 mls/hr Loperamide HCl (Imodium Cap*) 2 mg PO .SEE DIRECTIONS PRN PRN Reason: DIARRHEA Last Admin: 09/19/17 13:46 Dose: 2 mg Multi-Ingredient Mouthwash/Gargle (Magic Mouth Was-Aba/Maal/Lido*) 10 ml SWISH SPIT QID [facility] Last Admin: 09/19/17 13:53 Dose: 10 ml Ondansetron HCl (Zofran Inj*) 4 mg IV Q4H PRN PRN Reason: NAUSEA/VOMITING Silver Sulfadiazine (Silvadine 1%*) 1 applic TOPICAL BID [facility] Last Admin: 09/19/17 09:19 Dose: 1 applic Objective: [] Vital Signs Temp Pulse Resp BP Pulse Ox 98.7 F 70 16 119/55 98 09/19/17 11:06 09/19/17 11:06 09/19/17 13:53 09/19/17 11:06 09/19/17 11:06 A&Ox3, EOMI, PERRLA, neuro grossly non-focal Resp. even and non-labored without audible wheeze or rhonchi Radiation induced dermatitis to rectum and groin, some sloughing without pus or excudate Laboratory Results - last 24 hr 09/18/17 09/19/17 09/19/17 18:30 07:57 07:57 WBC 1.2 L RBC 3.40 L Hgb 10.7 L Hct 31 L MCV 91 MCH 31 MCHC 35 RDW 16 H Plt Count 111 L MPV 7.0 L Neut % (Auto) 35.5 L Lymph % (Auto) 21.9 L [place] % (Auto) 38.8 H Eos % (Auto) 3.5 Baso % (Auto) 0.3 Absolute Neuts (auto) 0.4 L Absolute Lymphs (auto) 0.3 L Absolute Monos (auto) 0.5 Absolute Eos (auto) 0 Absolute Basos (auto) 0 Absolute Nucleated RBC 0 Nucleated RBC % 0 Sodium 137 Potassium 3.8 Chloride 109 Carbon Dioxide 23 Anion Gap 5 BUN 8 Creatinine 0.50 L Est GFR ( Amer) 196.7 Est GFR (Non-Af Amer) 162.5 BUN/Creatinine Ratio 16.0 Glucose 95 Calcium 7.5 L Magnesium 1.9 Total Bilirubin 0.40 AST 17 ALT 22 Alkaline Phosphatase 57 Total Protein 5.1 L Albumin 2.7 L Globulin 2.4 Albumin/Globulin Ratio 1.1 Urine Color Yellow Urine Appearance Clear Urine pH 5.0 Ur Specific [place] 1.012 Urine Protein Negative Urine Ketones Negative Urine Blood 1+ A Urine Nitrate Negative Urine Bilirubin Negative Urine Urobilinogen Negative Ur Leukocyte Esterase Negative Urine WBC (Auto) Trace(0-5/hpf) Urine RBC (Auto) Absent Urine Bacteria 1+ A Urine Sperm Present A Urine Glucose Negative Assessment: []76 yo male s/p Mitomycin/5FU/XRT for anal cancer admitted d/t syncope felt secondary to dehydration and diarrhea from tx. He developed a fever within 24 hours of admission and is neutropenic, currently on Cefepime, with no obvious source at this time. He is stable though his ANC is only 400. Plan: []1. Urgency and diarrhea: appears partially spastic and I suggested a trial of lomotil before meals, could try levosin as well 2. Radiation dermatitis: cont. silvadene 3. Febrile Neutropenia: cont. Cefepime, can d/c home once ANC >/= 1000 4. Ankle fracture: medical management as per ortho
[2017-09-20] MEDS: Cefepime 2 GM in Dextrose(*) 2 GM/50 ML BAG IV SCH ×3 (03:12→19:56)
[2017-09-20] MEDS: NS 0.9% w/ 40 Meq KCL 1000 ML* 1,000 ML IV SCH ×3 (03:14→18:57)
[2017-09-20] MEDS: Heparin VIAL(*) 5000 UNITS/ML VIAL (FIVE THOUSAND) SUBCUT SCH ×3 (05:29→20:53)
[2017-09-20 09:02] LABS: ABS Basophils 0 10^3/ul (0-0.2); ABS Eosinophils 0.1 10^3/ul (0-0.6); ABS Lymphocytes 0.3 10^3/ul (1.0-4.8); ABS Monocytes 0.5 10^3/ul (0-0.8); ABS Nucleated RBC 0 10^3/ul; Eosinophil % 3.3 % (0-6); Hematocrit 33 % (42-52); Hemoglobin 11.2 g/dl (14.0-18.0); Lymphocyte % 17.2 % (25-47); Mean Corpuscular HGB Conc 34 g/dl (31-36); Mean Corpuscular Hemoglobin 31 pg (27-31); Mean Corpuscular Volume 90 fL (80-94); Mean Platelet Volume 6.9 um3 (7.4-10.4); Nucleated Red Blood Cells % 0.2; Platelet Count 105 10^3/ul (150-450); Red Blood Count 3.64 10^6/ul (4.00-5.40); Red Cell Distribution Width 16 % (10.5-15); White Blood Count 1.8 10^3/ul (3.5-10.8)
[2017-09-20] MEDS: Aspirin 81 mg CHEW TAB* 81 MG TAB.CHEW PO SCH (09:41)
[2017-09-20] MEDS: Magic Mouth Was-BEN/MAAL/LIDO SWISH SPIT SCH ×4 (09:41→19:57)
[2017-09-20] MEDS: Silver Sulfadiazine 1%* 20 GM TOPICAL SCH ×2 (09:43→19:59)
--- NOTE | 2017-09-20 10:18 | PN ---
Progress Note - Progress Note Date of Service: 09/20/17 SOAP: Subjective: []Bowels better since yesterday. Still has gas but no diarrhea and ate breakfast without having to tracey to bathroom. No abd. pain. Developed hesitancy overnight and burning with urination. Radiation dermatitis OK, silvadene helps. Mouth still sore, magic mouth rinse helps for a period but doesn't last. Very cautious about d/c planning as he lives alone and doesn't want to go until he knows he can manage by himself. Feels this is very complicated by ankle fracture. Medications: Acetaminophen (Tylenol Tab*) 650 mg PO Q4H PRN PRN Reason: FEVER/PAIN Last Admin: 09/18/17 16:45 Dose: 650 mg Al Hydrox/Mg Hydrox/Simethicone (Maalox Plus*) 30 ml PO Q6H PRN PRN Reason: INDIGESTION Aspirin (Aspirin 81 Mg Chew Tab*) 81 mg PO DAILY [facility] Last Admin: 09/20/17 09:41 Dose: 81 mg Diphenoxylate HCl/Atropine (Lomotil Tab*) 1 tab PO TID PRN PRN Reason: DIARRHEA Last Admin: 09/19/17 12:09 Dose: 1 tab Heparin Sodium (Porcine) (Heparin Vial(*)) 5,000 units SUBCUT Q8HR [facility] Last Admin: 09/20/17 05:29 Dose: 5,000 units Hydromorphone HCl (Dilaudid Inj*) 0.5 mg IV SLOW PU Q4H PRN PRN Reason: PAIN Last Admin: 09/19/17 03:11 Dose: 0.5 mg Potassium Chloride/Sodium Chloride (Ns 0.9% W/ 40 Meq Kcl 1000 Ml*) 1,000 mls @ 150 mls/hr IV PER RATE [facility] Last Admin: 09/20/17 03:14 Dose: 150 mls/hr Cefepime HCl (Maxipime 2 Gm In Dextrose Duplex (*)) 2 gm in 50 mls @ 100 mls/ hr IV Q8H [facility] Last Admin: 09/20/17 03:12 Dose: 100 mls/hr Fluconazole/Sodium Chloride (Diflucan 200 Mg Ivpremix(*)) 200 mg in 100 mls @ 100 mls/hr IVPB Q24H [facility] Last Admin: 09/19/17 10:53 Dose: 100 mls/hr Loperamide HCl (Imodium Cap*) 2 mg PO .SEE DIRECTIONS PRN PRN Reason: DIARRHEA Last Admin: 09/19/17 13:46 Dose: 2 mg Multi-Ingredient Mouthwash/Gargle (Magic Mouth Was-Aba/Maal/Lido*) 10 ml SWISH SPIT QID [facility] Last Admin: 09/20/17 09:41 Dose: 10 ml Ondansetron HCl (Zofran Inj*) 4 mg IV Q4H PRN PRN Reason: NAUSEA/VOMITING Silver Sulfadiazine (Silvadine 1%*) 1 applic TOPICAL BID [facility] Last Admin: 09/20/17 09:43 Dose: 1 applic Objective: [] Vital Signs Temp Pulse Resp BP Pulse Ox 98.2 F 86 18 107/53 96 09/20/17 07:14 09/20/17 07:14 09/20/17 07:14 09/20/17 07:14 09/20/17 07:14 A&Ox3, EOMI, PERRLA, neuro grossly non-focal HRR Oral mucosa beefy without ulcerations Resp. even and non-labored without audible wheeze or rhonchi Radiation melara to rectum and groin with sloughing Right ankle in cast Laboratory Results - last 24 hr 09/20/17 09/20/17 08:55 08:55 WBC 1.8 L RBC 3.64 L Hgb 11.2 L Hct 33 L MCV 90 MCH 31 MCHC 34 RDW 16 H Plt Count 105 L MPV 6.9 L Neut % (Auto) 53.0 Lymph % (Auto) 17.2 L [place] % (Auto) 26.2 H Eos % (Auto) 3.3 Baso % (Auto) 0.3 Absolute Neuts (auto) 1.0 L Absolute Lymphs (auto) 0.3 L Absolute Monos (auto) 0.5 Absolute Eos (auto) 0.1 Absolute Basos (auto) 0 Absolute Nucleated RBC 0 Nucleated RBC % 0.2 Sodium 135 Potassium 4.4 Chloride 105 Carbon Dioxide 23 Anion Gap 7 BUN 8 Creatinine 0.53 L Est GFR ( Amer) 183.9 Est GFR (Non-Af Amer) 152.0 BUN/Creatinine Ratio 15.1 Glucose 84 Calcium 7.9 L Total Bilirubin 0.40 AST 21 ALT 24 Alkaline Phosphatase 67 Total Protein 5.3 L Albumin 2.7 L Globulin 2.6 Albumin/Globulin Ratio 1.0 Assessment: []76 yo male s/p Mitomycin/5FU/XRT for anal cancer admitted for syncope and developed neutropenic fever. His neutropenia has resolved though he has new urinary symptoms and his course is complicated by expected toxicities of tx. as well as unfortunate ankle fracture. Plan: []1. Neutropenic Fever: no growth thus far on cultures, however will send repeat UA/CS with new symptoms - D3 Cefepime and Fluconazole today, cont. 2. Hesitancy and Burning with urination: UA/CS as above, however, I question if he actually has radiation induced prostatitis and have recommended Terazosin qHS to help. We will check a post void residual as well. - in retrospect pt. notes he was on "something" to make urinating easier and has not been on since admission, therefore less likely lomotil related and alpha -1-adrenergic antagonist much more supported 3. Diarrhea: secondary to radiation, improved with lomotil which unfortunately could be contributing to hesitancy, OK to cont. for now though we may have to d/ c this if it is progressive 4. Dermatitis: cont. silvadene 5. Fracture: as per ortho
[2017-09-20 11:22] LABS: Urine Appearance Clear; Urine Blood 1+ (Negative); Urine Color Straw; Urine Ketones 1+ (Negative); Urine Protein Negative (Negative); Urine Red Blood Cell 1+(3-5/hpf) (Absent); Urine Specific Gravity 1.008 (1.010-1.030); Urine Urobilinogen Negative (Negative); Urine White Blood Cell Trace(0-5/hpf) (Absent)
[2017-09-20] MEDS: Fluconazole 200 MG IVPREMIX(*) 200 MG/100 ML BAG IVPB SCH (12:02)
[2017-09-20] MEDS: Terazosin CAP* 1 MG PO SCH (19:57)
[2017-09-20] MEDS ORDERED: NS 0.9% 250 ML* 250 ML IV ONE (23:00)
[2017-09-21] MEDS: NS 0.9% w/ 40 Meq KCL 1000 ML* 1,000 ML IV SCH ×2 (02:51→11:31)
[2017-09-21] MEDS: Cefepime 2 GM in Dextrose(*) 2 GM/50 ML BAG IV SCH ×3 (03:50→20:00)
[2017-09-21] MEDS: Heparin VIAL(*) 5000 UNITS/ML VIAL (FIVE THOUSAND) SUBCUT SCH ×3 (05:34→21:24)
[2017-09-21] MEDS: Aspirin 81 mg CHEW TAB* 81 MG TAB.CHEW PO SCH (09:24)
[2017-09-21] MEDS: Diphenoxylat/Atrop 2.5-0.025M* 1 TAB PO PRN ×2 (09:24→20:03)
[2017-09-21] MEDS: Magic Mouth Was-BEN/MAAL/LIDO SWISH SPIT SCH ×4 (09:25→20:03)
[2017-09-21] MEDS: Silver Sulfadiazine 1%* 20 GM TOPICAL SCH ×2 (09:27→20:10)
--- NOTE | 2017-09-21 09:35 | PN ---
Progress Note - Progress Note Date of Service: 09/21/17 SOAP: Subjective: []Had 3 episodes of loose stool yesterday. Two occurred with movement rather than just after eating, urgency and had an accident. Still lots of burning in the rectum. Urine hesitancy improved with Terazosin. This AM had a lot of burning again. Wonders how long this will go on. Does not want to go home until he can be independent d/t none weight bearing. Low BP last night but he was not aware, no symptoms. Medications: Acetaminophen (Tylenol Tab*) 650 mg PO Q4H PRN PRN Reason: FEVER/PAIN Last Admin: 09/18/17 16:45 Dose: 650 mg Al Hydrox/Mg Hydrox/Simethicone (Maalox Plus*) 30 ml PO Q6H PRN PRN Reason: INDIGESTION Aspirin (Aspirin 81 Mg Chew Tab*) 81 mg PO DAILY [facility] Last Admin: 09/20/17 09:41 Dose: 81 mg Diphenoxylate HCl/Atropine (Lomotil Tab*) 1 tab PO TID PRN PRN Reason: DIARRHEA Last Admin: 09/19/17 12:09 Dose: 1 tab Heparin Sodium (Porcine) (Heparin Vial(*)) 5,000 units SUBCUT Q8HR [facility] Last Admin: 09/21/17 05:34 Dose: 5,000 units Hydromorphone HCl (Dilaudid Inj*) 0.5 mg IV SLOW PU Q4H PRN PRN Reason: PAIN Last Admin: 09/19/17 03:11 Dose: 0.5 mg Potassium Chloride/Sodium Chloride (Ns 0.9% W/ 40 Meq Kcl 1000 Ml*) 1,000 mls @ 150 mls/hr IV PER RATE [facility] Last Admin: 09/21/17 02:51 Dose: 150 mls/hr Cefepime HCl (Maxipime 2 Gm In Dextrose Duplex (*)) 2 gm in 50 mls @ 100 mls/ hr IV Q8H [facility] Last Admin: 09/21/17 03:50 Dose: 100 mls/hr Fluconazole/Sodium Chloride (Diflucan 200 Mg Ivpremix(*)) 200 mg in 100 mls @ 100 mls/hr IVPB Q24H [facility] Last Admin: 09/20/17 12:02 Dose: 100 mls/hr Loperamide HCl (Imodium Cap*) 2 mg PO .SEE DIRECTIONS PRN PRN Reason: DIARRHEA Last Admin: 09/19/17 13:46 Dose: 2 mg Multi-Ingredient Mouthwash/Gargle (Magic Mouth Was-Aba/Maal/Lido*) 10 ml SWISH SPIT QID [facility] Last Admin: 09/20/17 19:57 Dose: 10 ml Ondansetron HCl (Zofran Inj*) 4 mg IV Q4H PRN PRN Reason: NAUSEA/VOMITING Last Admin: 09/20/17 20:53 Dose: 4 mg Silver Sulfadiazine (Silvadine 1%*) 1 applic TOPICAL BID [facility] Last Admin: 09/20/17 19:59 Dose: 1 applic Terazosin HCl (Hytrin Cap*) 1 mg PO BEDTIME [facility] Last Admin: 09/20/17 19:57 Dose: 1 mg Objective: [] Vital Signs Temp Pulse Resp BP Pulse Ox 97.9 F 87 20 111/55 97 09/21/17 07:11 09/21/17 07:11 09/21/17 11:32 09/21/17 07:11 09/21/17 07:11 A&Ox3, EOMI, PERRLA, neuro grossly non-focal Mucousa moist, slightly irritated without ulcerations HRR, S1S2 LS clear bilat. +BS, abd. soft and non-tender Radiation dermatitis to rectum and groin Cast benign Laboratory Results - last 24 hr 09/21/17 10:30 WBC 2.7 L RBC 3.85 L Hgb 12.0 L Hct 35 L MCV 90 MCH 31 MCHC 35 RDW 16 H Plt Count 105 L MPV 7.2 L Neut % (Auto) 65.1 Lymph % (Auto) 13.1 L [place] % (Auto) 19.5 H Eos % (Auto) 1.8 Baso % (Auto) 0.5 Absolute Neuts (auto) 1.7 Absolute Lymphs (auto) 0.4 L Absolute Monos (auto) 0.5 Absolute Eos (auto) 0 Absolute Basos (auto) 0 Absolute Nucleated RBC 0 Nucleated RBC % 0.1 Assessment: []76 yo male s/p Mitomycin/5FU/XRT for anal cancer admitted for syncope and developed neutropenic fever. Overall improving, though with multiple symptoms. He is not safe for d/c at this time as he lives alone and cont.'s to need IV meds/fluids. Plan: []1. Neutropenic Fever: - neutropenia resolved - hypotensive last night, asymptomatic, but will need to cont. to monitor - cont. fluids (but can decrease rate) and IV abx. for now 2. Post chemo/XRT induced colitis/cystitis/proctatitis/dermatitis: - Consistent with expected toxicities, improvement should occur over next 2 weeks, though varies by person - cont. Silvadene, Terazosin, and Lomitil - Add Pyridium PRN 3. Ankle fracture: - as per ortho, start PT, but will need rehab and pt. willing
[2017-09-21] MEDS ORDERED: Phenazopyridine TAB* 100 MG PO PRN (10:03)
[2017-09-21 10:48] LABS: Hematocrit 35 % (42-52); Mean Corpuscular HGB Conc 35 g/dl (31-36); Mean Corpuscular Hemoglobin 31 pg (27-31); Mean Corpuscular Volume 90 fL (80-94); Mean Platelet Volume 7.2 um3 (7.4-10.4); Platelet Count 105 10^3/ul (150-450); Red Blood Count 3.85 10^6/ul (4.00-5.40); Red Cell Distribution Width 16 % (10.5-15); White Blood Count 2.7 10^3/ul (3.5-10.8)
[2017-09-21] MEDS: Fluconazole 200 MG IVPREMIX(*) 200 MG/100 ML BAG IVPB SCH (11:27)
[2017-09-21 11:28] LABS: ABS Basophils 0 10^3/ul (0-0.2); ABS Eosinophils 0 10^3/ul (0-0.6); ABS Lymphocytes 0.4 10^3/ul (1.0-4.8); ABS Monocytes 0.5 10^3/ul (0-0.8); ABS Neutrophils 1.7 10^3/ul (1.5-7.7); ABS Nucleated RBC 0 10^3/ul; Eosinophil % 1.8 % (0-6); Lymphocyte % 13.1 % (25-47); Nucleated Red Blood Cells % 0.1
[2017-09-21] MEDS ORDERED: NS 0.9% w/ 40 Meq KCL 1000 ML* 1,000 ML IV SCH (11:35)
[2017-09-21] MEDS: Terazosin CAP* 1 MG PO SCH (20:03)
[2017-09-21] MEDS: HYDROmorphone INJ* 0.5 MG/0.5 ML SYRINGE IV SLOW PU PRN (21:55)
[2017-09-22] MEDS: Cefepime 2 GM in Dextrose(*) 2 GM/50 ML BAG IV SCH ×2 (04:40→12:14)
[2017-09-22 07:02] LABS: ABS Basophils 0 10^3/ul (0-0.2); ABS Eosinophils 0 10^3/ul (0-0.6); ABS Lymphocytes 0.4 10^3/ul (1.0-4.8); ABS Monocytes 0.4 10^3/ul (0-0.8); ABS Neutrophils 2.1 10^3/ul (1.5-7.7); ABS Nucleated RBC 0 10^3/ul; Eosinophil % 1.5 % (0-6); Hematocrit 36 % (42-52); Hemoglobin 12.5 g/dl (14.0-18.0); Lymphocyte % 12.8 % (25-47); Mean Corpuscular HGB Conc 35 g/dl (31-36); Mean Corpuscular Hemoglobin 31 pg (27-31); Mean Corpuscular Volume 90 fL (80-94); Mean Platelet Volume 7.2 um3 (7.4-10.4); Nucleated Red Blood Cells % 0.3; Platelet Count 100 10^3/ul (150-450); Red Blood Count 4.01 10^6/ul (4.00-5.40); Red Cell Distribution Width 16 % (10.5-15); White Blood Count 2.9 10^3/ul (3.5-10.8)
[2017-09-22] MEDS: Heparin VIAL(*) 5000 UNITS/ML VIAL (FIVE THOUSAND) SUBCUT SCH ×2 (07:19→14:43)
[2017-09-22 07:25] LABS: EGFR Non-African American 134.3 (>60)
[2017-09-22] MEDS: Magic Mouth Was-BEN/MAAL/LIDO SWISH SPIT SCH ×2 (08:14→14:43)
[2017-09-22] MEDS: Aspirin 81 mg CHEW TAB* 81 MG TAB.CHEW PO SCH (08:14)
[2017-09-22] MEDS: Silver Sulfadiazine 1%* 20 GM TOPICAL SCH (12:14)
[2017-09-22 12:21] VITALS: BP 116/68
--- NOTE | 2017-09-23 06:40 | DS ---
CC: Dr. Montalvo; Dr. Adan Dobbs * DISCHARGE SUMMARY: DATE OF ADMISSION: 09/17/17 DATE OF DISCHARGE: 09/22/17 PRIMARY CARE PROVIDER: Dr. Montalvo PRIMARY ONCOLOGIST AND ATTENDING PHYSICIAN: Jean Shipley MD * (DICTATED BY ENRICO CAATLAN) CONSULTING ORTHOPEDIC SURGEON: Adan Dobbs MD PRIMARY DISCHARGE DIAGNOSES: 1. Neutropenic fever - negative cultures. 2. Rectal cancer status post chemotherapy and radiation therapy with associated proctitis, cystitis and dermatitis. 3. Right distal fibular fracture - minimally displaced - recommendation for conservative treatment per Orthopedic Surgery. DISCHARGE MEDICATIONS: 1. Aspirin 81 mg p.o. daily. 2. Atorvastatin 20 mg p.o. daily. 3. Meclizine 12.5 mg p.o. q.6 hours as needed for vertigo. 4. Silvadene cream 25 g applied topically twice daily. 5. PreserVision AREDS softgels 1 capsule p.o. twice daily. 6. Lomotil 1 tablet p.o. 3 times daily as needed for diarrhea. 7. Imodium 2 mg p.o. q.2 hours as needed for diarrhea. 8. Magic mouthwash 10 mL swish and spit 4 times daily as needed. 9. Pyridium 200 mg p.o. 3 times daily as needed for dysuria. 10. Carafate 10 mL p.o. 3 times daily. 11. Terazosin 1 mg p.o. at bedtime. HOSPITAL IMAGIN. CT brain shows no evidence of acute intracranial hemorrhage. 2. Cervical spine CT shows no evidence of acute fracture. There is mild chronic compression fracture of the superior endplate of T3 vertebra, which is unchanged as well as mild to moderate cervical spondylosis. 3. Chest x-ray, no evidence of acute disease. 4. Ankle x-ray shows oblique, slightly displaced intraarticular fracture of the distal fibula. HOSPITAL COURSE: This is a 76-year-old gentleman with anal cancer who recently completed therapy with mitomycin and concurrent radiation who did quite well through his therapy up until approximately the last week when he developed quite severe skin reaction and significant diarrhea. The patient reported feeling lightheaded at home and had been attempting to adjust the thermostat on his furnace when he suddenly felt weak and fell to the floor. He injured his ankle as a result of that fall and reports that there was instant swelling, but thought that he had simply sprained it. Over the course of the next 24 hours, the patient experienced 2 additional syncopal and presyncopal episodes and was subsequently brought by ambulance to the emergency department for further evaluation. The patient was initially neutropenic with an ANC of 600. First night of admission, the temperature reached 100.6 degrees Fahrenheit. Urine and blood cultures remained negative. Chest x-ray was negative for obvious pneumonia. The patient's ankle was x-rayed, which demonstrated a mildly displaced distal fibular fracture on the right. The patient was examined by orthopedic surgeon, Dr. Adan Dobbs who recommended conservative treatment with placement of a posterior splint with eventual transition to a short leg cast and non- weightbearing status on that leg. The patient continued to suffer with severe diarrhea and urinary frequency throughout his hospitalization, but improved over 24 hours prior to discharge with initiation of Lomotil and Pyridium. The patient's skin reaction was treated with Silvadene cream with few areas open over the buttocks, but otherwise evidence of good skin healing. DISPOSITION AND FOLLOWUP PLAN: The patient is being discharged to acute rehab. He will remain nonweightbearing on the right lower extremity with plans to transition to a short leg cast after 09/27/17 per Orthopedic Surgery. The patient will require follow up and serial x-rays with Orthopedics to ensure appropriate healing. He has completed his planned course of treatment for his anal cancer and he is no longer neutropenic. Recommended continuing the Lomotil , Pyridium, and Silvadene for his chemoradiation complications. The patient will require Oncology followup following discharge from rehab. Case was discussed with Dr. Caden Barnes. ENRICO CATALAN [id number]/[facility] #: [id number] MARKOS
== END 2017-09-22 15:00 | DRG 312 ==
LOC: ED 09:01 → MED 14:14
PROVIDERS: ADMIT Pediatrics; ATTEND Internal Medicine Hematology & Oncology
PROC: 2W3QX1Z Immobilization of Right Lower Leg using Splint (ICD-10-PCS; principal; 2017-09-17)
DX: R55 Syncope and collapse (principal); K52.0 Gastroenteritis and colitis due to radiation; K52.1 Toxic gastroenteritis and colitis; C20 Malignant neoplasm of rectum; B37.0 Candidal stomatitis; M48.54XA Collapsed vertebra, not elsewhere classified, thoracic region, initial encounter for fracture; N30.40 Irradiation cystitis without hematuria; K62.7 Radiation proctitis; M19.90 Unspecified osteoarthritis, unspecified site; Y84.2 Radiological procedure and radiotherapy as the cause of abnormal reaction of the patient, or of later complication, without mention of misadventure at the time of the procedure; D70.1 Agranulocytosis secondary to cancer chemotherapy; W18.30XA Fall on same level, unspecified, initial encounter; I10 Essential (primary) hypertension; E78.5 Hyperlipidemia, unspecified; Z66 Do not resuscitate; T45.1X5A Adverse effect of antineoplastic and immunosuppressive drugs, initial encounter; I95.9 Hypotension, unspecified; L59.8 Other specified disorders of the skin and subcutaneous tissue related to radiation; E86.0 Dehydration; R50.81 Fever presenting with conditions classified elsewhere; K13.79 Other lesions of oral mucosa; S82.61XA Displaced fracture of lateral malleolus of right fibula, initial encounter for closed fracture; Z92.21 Personal history of antineoplastic chemotherapy; Z92.3 Personal history of irradiation; Y92.008 Other place in unspecified non-institutional (private) residence as the place of occurrence of the external cause; Y92.9 Unspecified place or not applicable; Z87.442 Personal history of urinary calculi; Z82.49 Family history of ischemic heart disease and other diseases of the circulatory system; Z72.89 Other problems related to lifestyle; Z79.82 Long term (current) use of aspirin
CPT/HCPCS: 36415; 70450; 71045; 72125; 80048; 80053; 81003; 81015; 82270; 82550; 82553; 83605; 83630; 83690; 83735; 83880; 84443; 84484; 85025; 85060; 85610; 85730; 86140; 87040; 87045; 87046; 87086; 87328; 87329; 87493; 87899; 93005; 96374; 99232; 99233; 99239; 99283; 99284; A9270-GY; G8978-GP-CL; G8979-GP-CI; G8987-GO-CJ; G8988-GO-CH; J0692; J1170; J1450; J1642; J1644; J2405; J3475

== ENCOUNTER 2017-09-22 13:01 | Inpatient (IN) | payer MEDICARE ==
[2017-09-22] MEDS ORDERED: Acetaminophen TAB* 325 MG PO PRN (15:22)
[2017-09-22] MEDS ORDERED: Senna TAB PO PRN (15:22)
[2017-09-22] MEDS ORDERED: Docusate CAP* 100 MG PO PRN (15:22)
[2017-09-22] MEDS ORDERED: Ondansetron ODT TAB* 4 MG PO PRN (15:31)
[2017-09-22] MEDS ORDERED: Loperamide CAP* 2 MG PO PRN (15:32)
[2017-09-22] MEDS ORDERED: Phenazopyridine TAB* 100 MG PO PRN (16:38)
[2017-09-22] MEDS ORDERED: oxyCODONE TAB* 5 MG TAB PO PRN (16:39)
[2017-09-22] MEDS: Magic Mouth Was-BEN/MAAL/LIDO SWISH SPIT SCH ×2 (18:29→21:49)
--- NOTE | 2017-09-22 21:18 | HP ---
HISTORY AND PHYSICAL: DATE OF ADMISSION: 09/22/17 REASON FOR ADMISSION: Right ankle fracture, rectal cancer. HISTORY OF PRESENT ILLNESS: Dayo White is a 76-year-old male. According to the patient, in April of this year, the patient developed bleeding. He saw blood in the toilet bowl on several days consecutively after having a bowel movement. He called his doctor. He was referred for a colonoscopy. A rectal mass was found. He was sent to [facility]. The patient was diagnosed with rectal cancer. After seeing an expert at [facility], it was decided he could do chemo and radiation in [place]. He began doing his radiation in August. He also began chemotherapy at that time. For the first 3 weeks, he was fine driving himself to and from radiation. He started to become more fatigued as radiation persisted. His last day of radiation was 09/14/17. He suffered complications of radiation melara to his groin, his penis, and his buttock region. During those 5 months, the patient lost 30 pounds. He developed anorexia and significant diarrhea. The patient was with his ex- in his house looking at the thermostat on the furnace when he fell somewhere around 09/13/17. He had several more episodes of falling over the next few days. His ex- had to drive him to radiation sessions because he became too weak to do it himself. On 09/17/17, the patient went to get out of bed and had significant dizziness. He felt like he could not stand to ambulate to the bathroom. He decided to call 911. He was brought to [facility]. He was given 2 L of IV fluids and 25 mg meclizine. The patient on admission was found to have a white count of 1.2 with an absolute neutrophil count of 0.6. His troponin was 0. The patient had an x-ray of his right ankle showing a distal fibular fracture and he was splinted. In addition, because of the episodes of falling and lightheadedness, the patient was admitted. He was started on Silvadene for his radiation melara. In the hospital, the patient also complained of mucositis and mouth sores. He was started on Miracle mouthwash for this. The patient continued to have trouble with diarrhea. He was treated with Imodium. The patient was seen by Dr. Adan Dobbs. He was felt to have a lateral malleolus fracture and was made nonweightbearing on the right leg. He developed neutropenic fever or bryce fever and was started on IV antibiotics as protection. The patient's white count subsequently rashard over the next few days. He did have some trouble with burning with urination and was started on Pyridium for that. For his radiation melara, he was continued on Silvadene. It was felt that diarrhea was secondary to radiation and he was continued on Lomotil and Imodium. Because of the patient's weakened state and his nonweightbearing status, he was unable to return home. He was felt to have physical therapy and occupational therapy needs. He is now being admitted for inpatient rehab so that he may return to independent living. PAST MEDICAL HISTORY: As noted above. CURRENT MEDICATIONS: Include: 1. Aspirin a day. 2. He is on heparin for DVT prophylaxis. 3. Imodium. 4. Miracle mouthwash. 5. Pyridium. 6. Silvadene. 7. Hytrin. ALLERGIES: No known drug allergies. SOCIAL HISTORY: He is a nonsmoker, rare drinker. He lives by himself in a [employer] style house. There is a study on the first floor, which he can use as a bedroom. There is a half bath right near the study. The patient has a daughter living in the area and he is from his who still visits. The patient's house has 4 steps to enter. There are multiple steps inside between levels. REVIEW OF SYSTEMS: The patient does report problems with diarrhea still. PHYSICAL EXAMINATION VITAL SIGNS: The patient's temperature is 98.3, blood pressure is 116/68, pulse 104, respirations 18. HEENT: His extraocular movements appeared to be intact. Tongue is midline. NECK: Supple. LUNGS: Sound clear to auscultation bilaterally. HEART: Sounds were regular. S1 and S2 were audible. ABDOMEN: Soft and nontender. GENITOURINARY: The patient had mild radiation melara over his groins bilaterally. He had radiation melara in his rectal folds. He also had a mild radiation burn over his left scrotum. EXTREMITIES: Showed normal muscle bulk and tone. His right leg was in a splint. NEUROLOGIC: He was awake, alert, oriented. Muscle strength was about 4+/5 throughout. FUNCTIONAL EXAM: He transfers with min to mod assist. ASSESSMENT: Right ankle fracture in a patient with newly diagnosed rectal cancer just having completed 6 weeks of radiation therapy and chemotherapy. He has chronic diarrhea and mucositis. PLAN: Our plan is to integrate him into a comprehensive and therapeutic rehab program with the following goals: 1. Physical Therapy will work with the patient. They are going to work on functional transfer training, ambulation training with a walker. They will try him on crutches if he feels like he can do it, but I believe a walker might be best. 2. Occupational Therapy will see the patient, work on his activities of daily living including toileting and toilet transfers. 3. Heparin for DVT prophylaxis. 4. Adequate analgesia. For now, we are going to do oxycodone, although pain does not seem to be a big complaint. We will also continue Pyridium for burning pain when urinating. 5. Oncology followup as necessary. 6. For his diarrhea, we are going to continue Imodium and Lomotil as needed. 7. For mucositis, we will continue Magic mouthwash. 8. Consider nutritional supplementation such as Ensure. 9. Family training as appropriate. 10. Home with appropriate services. ESTIMATED LENGTH OF STAY: 8 to 10 days. [id number]/CPS #: [id number] MTDD
[2017-09-22] MEDS: Heparin VIAL(*) 5000 UNITS/ML VIAL (FIVE THOUSAND) SUBCUT SCH (21:49)
[2017-09-22] MEDS: Terazosin CAP* 1 MG PO SCH (21:49)
[2017-09-22] MEDS: Silver Sulfadiazine 1%* 20 GM TOPICAL SCH (21:58)
[2017-09-23] MEDS: Heparin VIAL(*) 5000 UNITS/ML VIAL (FIVE THOUSAND) SUBCUT SCH ×3 (05:58→21:25)
[2017-09-23] MEDS: Silver Sulfadiazine 1%* 20 GM TOPICAL SCH ×2 (09:05→21:25)
[2017-09-23] MEDS: Aspirin 81 mg CHEW TAB* 81 MG TAB.CHEW PO SCH (10:10)
[2017-09-23] MEDS: Magic Mouth Was-BEN/MAAL/LIDO SWISH SPIT SCH ×3 (10:10→21:24)
--- NOTE | 2017-09-23 20:37 | PN ---
Progress Note Date of Service: 09/23/17 Note: YAMILEX RUTLEDGE was visited. Therapy notes read and reviewed. He had some difficulties with dizziness and orthostatic hypotension. He was encouraged to take PO fluids but may need an IV if he's unable. PO intake not great Current Medications: Active Medications Generic Name Dose Route Start Last Admin Trade Name Freq PRN Reason Stop Dose Admin Acetaminophen 650 mg 09/22/17 15:22 Tylenol Tab* PO Q6H PRN FEVER/HEADACHE Aspirin 81 mg 09/23/17 09:00 09/23/17 10:10 Aspirin 81 Mg Chew Tab* PO 81 mg DAILY MAYDA Administration Docusate Sodium 100 mg 09/22/17 15:22 Colace Cap* PO BID PRN CONSTIPATION Heparin Sodium (Porcine) 5,000 units 09/22/17 22:00 09/23/17 14:09 Heparin Vial(*) SUBCUT 5,000 units Q8HR MAYDA Administration Loperamide HCl 2 mg 09/22/17 15:32 09/22/17 18:40 Imodium Cap* PO 2 mg .SEE DIRECTIONS PRN Administration DIARRHEA Multi-Ingredient Mouthwash/Gargle 5 ml 09/22/17 17:00 09/23/17 13:04 Magic Mouth Was-Aba/Maal/Lido* SWISH SPIT 5 ml QID MAYDA Administration Ondansetron HCl 4 mg 09/22/17 15:31 Zofran Odt Tab* PO Q6H PRN NAUSEA Oxycodone HCl 5 mg 09/22/17 16:39 09/22/17 18:40 Roxycodone Tab* PO 5 mg Q4H PRN Administration PAIN - MODERATE TO SEVERE Phenazopyridine HCl 200 mg 09/22/17 16:38 09/22/17 18:44 Pyridium Tab* PO 200 mg TID PRN Administration PAIN Senna 2 tab 09/22/17 15:22 Senokot Tab* PO BEDTIME PRN CONSTIPATION Silver Sulfadiazine 1 applic 09/22/17 21:00 09/23/17 09:05 Silvadine 1%* TOPICAL 1 applic BID MAYDA Administration Terazosin HCl 1 mg 09/22/17 21:00 09/22/17 21:49 Hytrin Cap* PO 1 mg BEDTIME MAYDA Administration Vital Signs: Vital Signs Temp Pulse Resp BP Pulse Ox 98.0 F 95 16 116/65 98 09/23/17 16:53 09/23/17 16:53 09/23/17 16:53 09/23/17 16:53 09/23/17 16:53 Exam: LUNGS Clear HEART: Reg rhythm ABDOMEN: Soft, +BS EXTREMITIES: RLE in splint NEUROLOGIC: alert, oriented. Motor exam normal Assessment/Plan: 1. Right Ankle fracture/lateral malleolus fracture: NWB RLE. PT/OT 2. Rectal CA, S/P XRT and Chemo: still with diarrhea and anorexia. May need IV fluids. Imodium PRN 3. Orthostatic hypotension: was orthostatic today and last night. Will likely need IVF 4. Neutropenia: resolved. Check counts in am 5. DVT Prophylaxis: Heparin S/Q 6. Advanced Directives: he has voided his MOLST. Full code 09/23/17 20:37 09/23/17 20:42
[2017-09-23] MEDS: Terazosin CAP* 1 MG PO SCH (21:25)
[2017-09-24] MEDS: Heparin VIAL(*) 5000 UNITS/ML VIAL (FIVE THOUSAND) SUBCUT SCH ×3 (05:54→21:15)
[2017-09-24 05:55] LABS: ABS Basophils 0 10^3/ul (0-0.2); ABS Eosinophils 0 10^3/ul (0-0.6); ABS Lymphocytes 0.5 10^3/ul (1.0-4.8); ABS Monocytes 0.4 10^3/ul (0-0.8); ABS Nucleated RBC 0 10^3/ul; Eosinophil % 0.7 % (0-6); Hematocrit 37 % (42-52); Hemoglobin 13.1 g/dl (14.0-18.0); Lymphocyte % 18.4 % (25-47); Mean Corpuscular HGB Conc 35 g/dl (31-36); Mean Corpuscular Hemoglobin 32 pg (27-31); Mean Corpuscular Volume 89 fL (80-94); Nucleated Red Blood Cells % 0; Platelet Count 102 10^3/ul (150-450); Red Blood Count 4.16 10^6/ul (4.00-5.40); Red Cell Distribution Width 17 % (10.5-15)
[2017-09-24] MEDS: Magic Mouth Was-BEN/MAAL/LIDO SWISH SPIT SCH ×6 (06:26→21:13)
[2017-09-24] MEDS: Aspirin 81 mg CHEW TAB* 81 MG TAB.CHEW PO SCH (10:24)
[2017-09-24] MEDS: Silver Sulfadiazine 1%* 20 GM TOPICAL SCH ×2 (10:24→21:19)
--- NOTE | 2017-09-24 20:43 | PN ---
Progress Note Date of Service: 09/24/17 Note: YAMILEX RUTLEDGE was visited. Nursing and Therapy notes read and reviewed. Still having problems with PO but did a little better today. I went through a list of medications that might be helpful-easier to digest foods and foods higher in soluble fiber, getting away from raw fruits and veggies Current Medications: Active Medications Generic Name Dose Route Start Last Admin Trade Name Freq PRN Reason Stop Dose Admin Acetaminophen 650 mg 09/22/17 15:22 Tylenol Tab* PO Q6H PRN FEVER/HEADACHE Aspirin 81 mg 09/23/17 09:00 09/24/17 10:24 Aspirin 81 Mg Chew Tab* PO 81 mg DAILY MAYDA Administration Docusate Sodium 100 mg 09/22/17 15:22 Colace Cap* PO BID PRN CONSTIPATION Heparin Sodium (Porcine) 5,000 units 09/22/17 22:00 09/24/17 14:08 Heparin Vial(*) SUBCUT 5,000 units Q8HR MAYDA Administration Loperamide HCl 2 mg 09/22/17 15:32 09/22/17 18:40 Imodium Cap* PO 2 mg .SEE DIRECTIONS PRN Administration DIARRHEA Multi-Ingredient Mouthwash/Gargle 5 ml 09/22/17 17:00 09/24/17 17:36 Magic Mouth Was-Aba/Maal/Lido* SWISH SPIT 5 ml QID MAYDA Administration Ondansetron HCl 4 mg 09/22/17 15:31 Zofran Odt Tab* PO Q6H PRN NAUSEA Oxycodone HCl 5 mg 09/22/17 16:39 09/22/17 18:40 Roxycodone Tab* PO 5 mg Q4H PRN Administration PAIN - MODERATE TO SEVERE Phenazopyridine HCl 200 mg 09/22/17 16:38 09/22/17 18:44 Pyridium Tab* PO 200 mg TID PRN Administration PAIN Senna 2 tab 09/22/17 15:22 Senokot Tab* PO BEDTIME PRN CONSTIPATION Silver Sulfadiazine 1 applic 09/22/17 21:00 09/24/17 10:24 Silvadine 1%* TOPICAL 1 applic BID MAYDA Administration Terazosin HCl 1 mg 09/22/17 21:00 09/23/17 21:25 Hytrin Cap* PO 1 mg BEDTIME MAYDA Administration Vital Signs: Vital Signs Temp Pulse Resp BP Pulse Ox 98.1 F 96 16 116/62 93 09/24/17 19:59 09/24/17 19:59 09/24/17 19:59 09/24/17 19:59 09/24/17 19:59 Lab Results: Laboratory Results - last 24 hr 09/24/17 05:39 WBC 3.0 L RBC 4.16 Hgb 13.1 L Hct 37 L MCV 89 MCH 32 H MCHC 35 RDW 17 H Plt Count 102 L MPV 8.0 Neut % (Auto) 67.5 Lymph % (Auto) 18.4 L [place] % (Auto) 12.9 H Eos % (Auto) 0.7 Baso % (Auto) 0.5 Absolute Neuts (auto) 2.0 Absolute Lymphs (auto) 0.5 L Absolute Monos (auto) 0.4 Absolute Eos (auto) 0 Absolute Basos (auto) 0 Absolute Nucleated RBC 0 Nucleated RBC % 0 Exam: GENERAL: alert, seems in good spirits LUNGS Clear HEART: Reg rhythm ABDOMEN: Soft, +BS EXTREMITIES: RLE in splint NEUROLOGIC: alert, oriented. Motor exam normal Assessment/Plan: 1. Right Ankle fracture/lateral malleolus fracture: NWB RLE. PT/OT 2. Rectal CA, S/P XRT and Chemo: still with diarrhea and anorexia. May need IV fluids. Imodium PRN 3. Orthostatic hypotension: was orthostatic today and last night. Will likely need IVF 4. Neutropenia: resolved. Check counts in am 5. DVT Prophylaxis: Heparin S/Q 6. Diarrhea: will try dietary modifications. Add Culturelle 6. Advanced Directives: he has voided his MOLST. Full code 09/24/17 20:44
[2017-09-24] MEDS: Terazosin CAP* 1 MG PO SCH (21:15)
[2017-09-25] MEDS: Heparin VIAL(*) 5000 UNITS/ML VIAL (FIVE THOUSAND) SUBCUT SCH ×3 (05:30→21:41)
[2017-09-25 05:36] LABS: ABS Basophils 0 10^3/ul (0-0.2); ABS Eosinophils 0 10^3/ul (0-0.6); ABS Lymphocytes 0.6 10^3/ul (1.0-4.8); ABS Monocytes 0.4 10^3/ul (0-0.8); ABS Neutrophils 2.3 10^3/ul (1.5-7.7); ABS Nucleated RBC 0 10^3/ul; Eosinophil % 0.6 % (0-6); Hematocrit 38 % (42-52); Lymphocyte % 17.5 % (25-47); Mean Corpuscular HGB Conc 34 g/dl (31-36); Mean Corpuscular Hemoglobin 31 pg (27-31); Mean Corpuscular Volume 90 fL (80-94); Mean Platelet Volume 8.2 um3 (7.4-10.4); Nucleated Red Blood Cells % 0; Platelet Count 102 10^3/ul (150-450); Red Blood Count 4.26 10^6/ul (4.00-5.40); Red Cell Distribution Width 17 % (10.5-15); White Blood Count 3.3 10^3/ul (3.5-10.8)
[2017-09-25 05:51] LABS: EGFR Non-African American 131.7 (>60)
[2017-09-25] MEDS: Magic Mouth Was-BEN/MAAL/LIDO SWISH SPIT SCH ×4 (09:08→21:32)
[2017-09-25] MEDS: Aspirin 81 mg CHEW TAB* 81 MG TAB.CHEW PO SCH (09:08)
[2017-09-25] MEDS: Silver Sulfadiazine 1%* 20 GM TOPICAL SCH ×2 (09:09→21:33)
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
--- NOTE | 2017-09-25 17:39 | PN ---
Progress Note Date of Service: 09/25/17 Note: YAMILEX RUTLEDGE was visited. Therapy notes read and reviewed. He was discussed in interdisciplinary plan of care rounds. He feels like his stomach is off but has not had an episode of diarrhea since yesterday. Eating a bland easy to digest diet: custard, yogurt, chicken pork, potatoes, avoiding fried foods. Doing a little better. Now has to work with therapists and sit up a little more. Would like to run IV fluids overnight. Current Medications: Active Medications Generic Name Dose Route Start Last Admin Trade Name Freq PRN Reason Stop Dose Admin Acetaminophen 650 mg 09/22/17 15:22 Tylenol Tab* PO Q6H PRN FEVER/HEADACHE Aspirin 81 mg 09/23/17 09:00 09/25/17 09:08 Aspirin 81 Mg Chew Tab* PO 81 mg DAILY MAYDA Administration Docusate Sodium 100 mg 09/22/17 15:22 Colace Cap* PO BID PRN CONSTIPATION Heparin Sodium (Porcine) 5,000 units 09/22/17 22:00 09/25/17 14:42 Heparin Vial(*) SUBCUT 5,000 units Q8HR MAYDA Administration Lactobacillus Rhamnosus 1 tab 09/25/17 21:00 Lactobacillus Acidophilus* PO BID MAYDA Loperamide HCl 2 mg 09/22/17 15:32 09/22/17 18:40 Imodium Cap* PO 2 mg .SEE DIRECTIONS PRN Administration DIARRHEA Multi-Ingredient Mouthwash/Gargle 5 ml 09/22/17 17:00 09/25/17 17:32 Magic Mouth Was-Aba/Maal/Lido* SWISH SPIT 5 ml QID MAYDA Administration Ondansetron HCl 4 mg 09/22/17 15:31 Zofran Odt Tab* PO Q6H PRN NAUSEA Oxycodone HCl 5 mg 09/22/17 16:39 09/22/17 18:40 Roxycodone Tab* PO 5 mg Q4H PRN Administration PAIN - MODERATE TO SEVERE Phenazopyridine HCl 200 mg 09/22/17 16:38 09/22/17 18:44 Pyridium Tab* PO 200 mg TID PRN Administration PAIN Senna 2 tab 09/22/17 15:22 Senokot Tab* PO BEDTIME PRN CONSTIPATION Silver Sulfadiazine 1 applic 09/22/17 21:00 09/25/17 09:09 Silvadine 1%* TOPICAL 1 applic BID MAYDA Administration Terazosin HCl 1 mg 09/22/17 21:00 09/24/17 21:15 Hytrin Cap* PO 1 mg BEDTIME MAYDA Administration Vital Signs: Vital Signs Temp Pulse Resp BP Pulse Ox 97.9 F 101 18 106/64 96 09/25/17 16:30 09/25/17 16:30 09/25/17 16:30 09/25/17 16:30 09/25/17 16:30 Lab Results: Laboratory Results - last 24 hr 09/25/17 09/25/17 04:51 04:51 WBC 3.3 L RBC 4.26 Hgb 13.0 L Hct 38 L MCV 90 MCH 31 MCHC 34 RDW 17 H Plt Count 102 L MPV 8.2 Neut % (Auto) 69.6 Lymph % (Auto) 17.5 L [place] % (Auto) 11.7 H Eos % (Auto) 0.6 Baso % (Auto) 0.6 Absolute Neuts (auto) 2.3 Absolute Lymphs (auto) 0.6 L Absolute Monos (auto) 0.4 Absolute Eos (auto) 0 Absolute Basos (auto) 0 Absolute Nucleated RBC 0 Nucleated RBC % 0 Sodium 133 L Potassium 4.0 Chloride 99 L Carbon Dioxide 25 Anion Gap 9 BUN 19 Creatinine 0.60 L Est GFR ( Amer) 159.4 Est GFR (Non-Af Amer) 131.7 BUN/Creatinine Ratio 31.7 H Glucose 108 H Calcium 8.9 Total Bilirubin 0.50 AST 34 ALT 49 Alkaline Phosphatase 91 Total Protein 6.1 L Albumin 3.2 Globulin 2.9 Albumin/Globulin Ratio 1.1 Exam: GENERAL: alert, seems in good spirits LUNGS Clear HEART: Reg rhythm ABDOMEN: Soft, +BS EXTREMITIES: RLE in splint NEUROLOGIC: alert, oriented. Motor exam normal Assessment/Plan: 1. Right Ankle fracture/lateral malleolus fracture: NWB RLE. PT/OT 2. Rectal CA, S/P XRT and Chemo: still with diarrhea and anorexia. May need IV fluids. Imodium PRN 3. Orthostatic hypotension: was orthostatic today and last night. Will run IVF overnight 4. Neutropenia: resolved. counts ok 5. DVT Prophylaxis: Heparin S/Q 6. Diarrhea: will try dietary modifications. White food diet (potatoes/white rice/oatmeal/yogurt/baked chicken/baked pork) Added Culturelle 6. Advanced Directives: he has voided his MOLST. Full code 09/25/17 17:40
[2017-09-25] MEDS ORDERED: D5NS 0.9% 1000 ML BAG* 1,000 ML IV SCH (18:00)
[2017-09-25] MEDS ORDERED: Loperamide CAP* 2 MG PO PRN (18:15)
--- NOTE | 2017-09-25 18:26 | PN ---
Progress Note - Progress Note Date of Service: 09/25/17 SOAP: Subjective: []Improved overall. Frustrated by diarrhea that has been persistent. No fevers. Pain in rectum improved and skin is healing. Off antibiotics, blood counts up and no fevers. He will have cast on Mon and possible d/c Monday. Concerned about diarrhea and living alone. Some difficulty with urination. Acetaminophen (Tylenol Tab*) 650 mg PO Q6H PRN PRN Reason: FEVER/HEADACHE Aspirin (Aspirin 81 Mg Chew Tab*) 81 mg PO DAILY [facility] Last Admin: 09/25/17 09:08 Dose: 81 mg Docusate Sodium (Colace Cap*) 100 mg PO BID PRN PRN Reason: CONSTIPATION Heparin Sodium (Porcine) (Heparin Vial(*)) 5,000 units SUBCUT Q8HR [facility] Last Admin: 09/25/17 14:42 Dose: 5,000 units Dextrose/Sodium Chloride (D5ns 0.9% 1000 Ml Bag*) 1,000 mls @ 75 mls/hr IV PER RATE [facility] Stop: 09/26/17 07:19 Lactobacillus Rhamnosus (Lactobacillus Acidophilus*) 1 tab PO BID [facility] Loperamide HCl (Imodium Cap*) 2 mg PO .SEE DIRECTIONS PRN PRN Reason: DIARRHEA Multi-Ingredient Mouthwash/Gargle (Magic Mouth Was-Aba/Maal/Lido*) 5 ml SWISH SPIT QID [facility] Last Admin: 09/25/17 17:32 Dose: 5 ml Ondansetron HCl (Zofran Odt Tab*) 4 mg PO Q6H PRN PRN Reason: NAUSEA Oxycodone HCl (Roxycodone Tab*) 5 mg PO Q4H PRN PRN Reason: PAIN - MODERATE TO SEVERE Last Admin: 09/22/17 18:40 Dose: 5 mg Phenazopyridine HCl (Pyridium Tab*) 200 mg PO TID PRN PRN Reason: PAIN Last Admin: 09/22/17 18:44 Dose: 200 mg Senna (Senokot Tab*) 2 tab PO BEDTIME PRN PRN Reason: CONSTIPATION Silver Sulfadiazine (Silvadine 1%*) 1 applic TOPICAL BID [facility] Last Admin: 09/25/17 09:09 Dose: 1 applic Terazosin HCl (Hytrin Cap*) 1 mg PO BEDTIME [facility] Last Admin: 09/24/17 21:15 Dose: 1 mg Objective: [] Vital Signs Temp Pulse Resp BP Pulse Ox 97.9 F 101 18 106/64 96 09/25/17 16:30 09/25/17 16:30 09/25/17 16:30 09/25/17 16:30 09/25/17 16:30 HEENT: no thrush CTA RRR S1S +BS, NT ND soft skin healed at groin, did not inspect rectum. Ext no edema, good pulses Laboratory Results - last 24 hr 09/25/17 09/25/17 04:51 04:51 WBC 3.3 L RBC 4.26 Hgb 13.0 L Hct 38 L MCV 90 MCH 31 MCHC 34 RDW 17 H Plt Count 102 L MPV 8.2 Neut % (Auto) 69.6 Lymph % (Auto) 17.5 L [place] % (Auto) 11.7 H Eos % (Auto) 0.6 Baso % (Auto) 0.6 Absolute Neuts (auto) 2.3 Absolute Lymphs (auto) 0.6 L Absolute Monos (auto) 0.4 Absolute Eos (auto) 0 Absolute Basos (auto) 0 Absolute Nucleated RBC 0 Nucleated RBC % 0 Sodium 133 L Potassium 4.0 Chloride 99 L Carbon Dioxide 25 Anion Gap 9 BUN 19 Creatinine 0.60 L Est GFR ( Amer) 159.4 Est GFR (Non-Af Amer) 131.7 BUN/Creatinine Ratio 31.7 H Glucose 108 H Calcium 8.9 Total Bilirubin 0.50 AST 34 ALT 49 Alkaline Phosphatase 91 Total Protein 6.1 L Albumin 3.2 Globulin 2.9 Albumin/Globulin Ratio 1.1 Assessment: []76 year old in [facility] after chemotherapy with 5FU/mitomycin and radiation. Improved from last week but still recovering bowl function. Plan: []1. Continues to improve after chemotherapy and radiation. 2. Diarrhea second to XRT as well as antibiotics and mitomycin. - Suggested foods close to BRAT diet but does not have to be overly restrictive. Simple carbohydrates, protein and dairy only in small amounts, avoid high fiber foods. Clear liquids with calories. - IVF x 1 L now, eat more salt - Stop Colase - Imodium 2 mg am standing and then prn. 3. Planning cast on Mon and possible D/C on Monday 4. Expect continued improvement over the week, will follow up on Monday.
[2017-09-25] MEDS: Terazosin CAP* 1 MG PO SCH (21:33)
[2017-09-25] MEDS: Lactobacillus Acidophilus* 1 TAB PO SCH (21:33)
[2017-09-26] MEDS: Heparin VIAL(*) 5000 UNITS/ML VIAL (FIVE THOUSAND) SUBCUT SCH ×3 (05:57→20:55)
[2017-09-26] MEDS: Magic Mouth Was-BEN/MAAL/LIDO SWISH SPIT SCH (09:01)
[2017-09-26] MEDS: Lactobacillus Acidophilus* 1 TAB PO SCH (09:02)
[2017-09-26] MEDS: Aspirin 81 mg CHEW TAB* 81 MG TAB.CHEW PO SCH (09:02)
[2017-09-26] MEDS: Silver Sulfadiazine 1%* 20 GM TOPICAL SCH ×2 (09:42→20:56)
--- NOTE | 2017-09-26 12:57 | PMRUTEAM ---
PMRU: Team Meeting Current Status: Nursing: Current Status Skin Deviations [Buttocks/ Other Coccyx] Skin Deviations [L side shaft Other penis] Skin Deviations [Bilat Groins] Other Skin Deviation Description [ radiation melara, two oval open areas to left Buttocks/Coccyx] medial buttock and one open area 1"long @ coccyx Skin Deviation Description [L pink, radiation melara, no open areas side shaft penis] Skin Deviation Description [ pink, radiation melara, no open areas Bilat Groins] Drain Type [Buttocks/Coccyx] None Bladder Current Status voiding` Bowel Current Status prune juice ordered, PRN senna available Nutrition Current Status eating small amounts Medication Current Status aware of medication regime Physical Therapy: Current Status Bed Mobility Assistance Supervision Transfer Moblility Assistance Supervision Transfer/Bed Mobility Rolling Walker Recommended Devices Ambulation Assistance Not Tested Ambulation Assistive Devices Rolling Walker Stairs Assistance Not Tested Curb Not Tested Occupational Therapy: Current Status Upper Body Dressing Supervision Lower Body Dressing Min Assist Bathing Min Assist Toileting Supervision Toilet Transfer Supervision Eating Independent Rec Therapy: Current Status Summary of Assessment and RT services introduced and assessment was Clinical Impression attempted. Pt. was reluctant to provide details about his hobbies/interests but rather stated "I'm retired and have lots of free time and hobbies". Pt. was somewhat dismissive at further attempts by this investigative writer to engage in conversation about his specific hobbies even when questions were rephrased. Pt. declined need for RT services but was open to occasional visits. Treatment Goals Pt. will engage in leisure activities while on the unit if willing. Treatment Plan Will attempt to build a rapport during leisure visits and complete RT assessment if pt. is willing. Social Work: Current Status Discharge Plan return home with home care svs and support from family and friends Potential for Family Training TBD (pt lives alone and has limited support) Anticipated Discharge Home Destination Discharge With home care svs and support from family and friends Nutrition: Current Status Monitoring Visited pt today; pt continues to c/o diarrhea, so has developed a plan with on PMRU to eat just yogurt and custard for the time being, to help his stomach "settle." Pt denies any questions or concerns at this time. Will monitor tolerance of yogurt/custard diet and for improvement in bowel pattern. 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 Lactobacillus to start today. Skin intact, though at moderate risk for breakdown given irritation d/ t diarrhea. Goals: Physical Therapy: Initial Goals Bed Mobility Assistance Independent Transfer Mobility Assistance Independent Transfer/Bed Mobility Rolling Walker,Knee Scooter Recommended Devices Ambulation Independent Ambulation Recommended Devices Rolling Walker,Knee Scooter Ambulation Distance 150 Stairs Assistance Independent Stair Recommended Devices Crutches,One Rail Number of Stairs 4 Physical Therapy: Updated Goals Transfer/Bed Mobility None,Rolling Walker Recommended Devices Occupational Therapy: Initial Goals Goals to be Completed in (Days 3-5 ) Upper Body Bathing Routine Independent Lower Body Bathing Routine Modified Independent with Upper Body Dressing Routine Independent Lower Body Dressing Routine Modified Independent with Toilet Hygeine and Clothing Modified Independent with Management Routine Toilet Transfer Routine Modified Independent with Step-In Shower Transfer Supervision/Set Up Routine Functional Transfers for ADL Modified Independent with Grooming Routine Independent Feeding Routine Independent Nursing: Goals Bladder Goal indep Bowel Goal indep Nutrition Goal indep Medication Goal indep Nutrition: Goals Intervention Goals 1. Intake will improve to promote weight repletion and prevent additional weight loss 2. Pt will tolerate soft/bland diet w/o difficulty swallowing 3. High protein meals/snacks as able 4. Pt will tolerate diet w/o excessive diarrhea 5. Electrolytes WNL with adequate hydration and management of diarrhea 6. Intake will promote healing of RT melara w/o signs of additional breakdown Social Work: Goals Discharge Plan return home with home care svs and support from family and friends Potential for Family Training TBD (pt lives alone and has limited support) Anticipated Discharge Home Destination Discharge With home care svs and support from family and friends Care Plan: Care Plan ADL's - Improve/Maintain Start: 09/23/17 02:57 Freq: DAILY Status: Active Target: Protocol: Activity Type Activity Date Activity User E-Sign Co-Sign Detail Recorded Client Recorded Date Recorded By Document 09/26/17 10:17 [id number] 09/26/17 10:17 [id number] 09/26/17 10:17 PMRU Outcome: ADL's/ADL Transfers Orders/Interventions Occupational Therapy Evaluation & Treatment Communication Tool in Patient Room Device Yes Address Deficits Secondary To: right ankle fx Patient to receive OT 5x/wk for 60-120 Therex min/day Self Care Management Group Therapy UE/LE ADL's with Assist Yes: Sea ADL Transfers with Assist Yes: Sea toilet, supervision shower Toileting: Transfers,Clothing Management Yes: Sea ,Hygeine w/Assist Light Kitchen/Laundry w/Assist No Progression Toward Outcome/Goals Progressing Outcome/Goals Met Pt participated well in ADL treatment session, pt appears overwhelmed and has concerns about home setup and managing at home at d/c, however, pt states frequently during session, "I'll just have to figure it out." Discussed concerns with SW and PT, also educated pt on therapy team's goal to assist him in working out plans for home prior to d /c for pt's safety. Coping/Psych-Improve/Maintain Start: 09/23/17 02:57 Freq: QSHIFT Status: Active Target: Protocol: Activity Type Activity Date Activity User E-Sign Co-Sign Detail Recorded Client Recorded Date Recorded By Document 09/26/17 08:00 [id number] 09/26/17 12:45 [id number] 09/26/17 08:00 PMRU Outcome: Coping/Psychosocial Coping Outcome/Goals Verbalization of Acceptance of Rehab Admit Verbalization of Sense of Control Over Health Status Utilization of Appropriate Problem Solving Techniques Willingness to Participate in Treatment Plan and Basic Needs Psychosocial Outcome/Goals Maintain/ Improve Emotional Health Cooperate/ Participate in Plan Progression Toward Outcome/Goals - Progressing Coping Progression Toward Outcome/Goals - Progressing Psychosocial DVT Prophylaxis- Improve/Maintain Start: 09/23/17 02:57 Freq: QSHIFT Status: Active Target: Protocol: Activity Type Activity Date Activity User E-Sign Co-Sign Detail Recorded Client Recorded Date Recorded By Document 09/26/17 08:00 [id number] 09/26/17 12:45 [id number] 09/26/17 08:00 PMRU Outcome: DVT Prophylaxis Outcome/Goals Remains Free of DVT TEDS Stockings on Every AM, Off at HS Progression Toward Outcome/Goals Progressing Discharge Planning - Improve/Maintain Start: 09/23/17 02:57 Freq: DAILY@1200 Status: Active Target: Protocol: Activity Type Activity Date Activity User E-Sign Co-Sign Detail Recorded Client Recorded Date Recorded By Document 09/26/17 12:00 [id number] 09/26/17 12:45 [id number] 09/26/17 12:00 PMRU Outcome: Discharge Planning Update Patient Family No Outcome/Goals Demonstrates Understanding of Discharge Plan Progression Toward Outcome/Goals Progressing Education-Improve/Maintain Start: 09/23/17 02:57 Freq: QSHIFT Status: Active Target: Protocol: Activity Type Activity Date Activity User E-Sign Co-Sign Detail Recorded Client Recorded Date Recorded By Document 09/26/17 08:00 [id number] 09/26/17 12:45 [id number] 09/26/17 08:00 PMRU Outcome: Education Outcome/Goals Encourage Questions Progression Toward Outcome/Goals Progressing /GI-Improve/Maintain Start: 09/23/17 02:57 Freq: QSHIFT Status: Active Target: Protocol: Activity Type Activity Date Activity User E-Sign Co-Sign Detail Recorded Client Recorded Date Recorded By Document 09/26/17 08:00 [id number] 09/26/17 12:45 [id number] 09/26/17 08:00 PMRU Outcome: Genitourinary/ Gastrointestinal Genitourinary- Outcome/Goals Maintain/ Achieve Urinary Continence Maintain/ Achieve Adequate Urinary Output Gastrointestinal-Outcome/Goals Maintain/ Achieve Bowel Regularity in Accordance with Pt's Baseline Remain Free of Emesis Prevent Constipation Other Progression Toward Outcome/Goals - Progressing Progression Toward Outcome/Goals - GI Progressing Outcome/Goals Met Comment used urinal Mobility- Improve/Maintain Start: 09/23/17 02:57 Freq: DAILY Status: Active Target: Protocol: Activity Type Activity Date Activity User E-Sign Co-Sign Detail Recorded Client Recorded Date Recorded By Document 09/23/17 18:03 [id number] [email or web address] 09/23/17 18:05 [id number] 09/23/17 18:03 PMRU Outcome: Mobility Physical Therapy Evaluation and Yes Treatment Activity OOB with Assistance Yes NWB Yes: Patient NWB RLE Device Yes Assistance Yes Patient to be seen 5x/wk for 60-120 min/ Therex day for: Mobility Training Gait Training W/C Mobility Balance Outcome/Goals Maintain/ Achieve Baseline Mobility Status Improve Mobility Status Demonstrates Proper Use of Assistive Devices Free from Complications of Immobility Bed Mobility Yes: independent Transfers Yes: independent with and without RW. Gait x ft Yes: independent 50' with RW Up/Down Stairs Yes: Independent up down 5 stairs with rail and crutches. Neurological- Improve/Maintain Start: 09/23/17 02:57 Freq: QSHIFT Status: Active Target: Protocol: Activity Type Activity Date Activity User E-Sign Co-Sign Detail Recorded Client Recorded Date Recorded By Document 09/26/17 08:00 [id number] 09/26/17 12:45 [id number] 09/26/17 08:00 PMRU Outcome: Neurological Weakness/Aphasia Weakness Right Side Outcome/Goals Prevent Avoidable Neurological Decline Maintain/ Improve Strength/ROM Progression Toward Outcome/Goals Progressing Nutrition/Swallowing- Improve/Maintain Start: 09/23/17 02:57 Freq: QSHIFT Status: Active Target: Protocol: Activity Type Activity Date Activity User E-Sign Co-Sign Detail Recorded Client Recorded Date Recorded By Document 09/26/17 08:00 [id number] 09/26/17 12:45 [id number] 09/26/17 08:00 PMRU Outcome: Nutrition/Swallowing Outcome/Goals Demonstrates Adequate Hydration/ Prevents Dehydration Maintain/ Improve Nutritional Status Progression Toward Outcome/Goals Progressing Pain/Comfort- Improve/Maintain Start: 09/23/17 02:57 Freq: QSHIFT Status: Active Target: Protocol: Activity Type Activity Date Activity User E-Sign Co-Sign Detail Recorded Client Recorded Date Recorded By Document 09/26/17 08:00 [id number] 09/26/17 12:45 [id number] 09/26/17 08:00 PMRU Outcome: Pain/Comfort Outcome/Goals Demonstrates Knowledge and Use of Available Comfort Measures Achieves Acceptable Comfort/Pain Level as Determined by Patient/Condit Maintain Comfort Level Allowing Patient to Fully Participate in Rehab Progression Toward Outcome/Goals Progressing Outcome/Goals Met Comment denies pain Skin- Improve/Maintain Start: 09/23/17 02:57 Freq: QSHIFT Status: Active Target: Protocol: Activity Type Activity Date Activity User E-Sign Co-Sign Detail Recorded Client Recorded Date Recorded By Document 09/26/17 08:00 [id number] 09/26/17 12:45 [id number] 09/26/17 08:00 PMRU Outcome: Skin Skin Risk Level Medium Skin Orders Turn/Position q2hr While in Bed Outcome/Goals Maintain/ Improve Skin Intergrity Maintain/ Improve Wound Status Progression Toward Outcome/Goals Progressing Medicine Note: Length of Stay: 3 days Anticipated Discharge Destination: Home Tentative Discharge Date: 09/29/17 Discharged to: Home
--- NOTE | 2017-09-26 17:31 | PN ---
Progress Note Date of Service: 09/26/17 Note: YAMILEX RUTLEDGE was visited. Therapy notes read and reviewed. Yamilex was discussed in interdisciplinary team rounds. I also met with Yamilex privately to discuss his upcoming discharge and equipment needed. His diarrhea has improved and he is eating better and drinking a little more. Still needs encouragement to get out of bed. Appreciate Dr. Shipley's note Current Medications: Active Medications Generic Name Dose Route Start Last Admin Trade Name Freq PRN Reason Stop Dose Admin Acetaminophen 650 mg 09/22/17 15:22 Tylenol Tab* PO Q6H PRN FEVER/HEADACHE Aspirin 81 mg 09/23/17 09:00 09/26/17 09:02 Aspirin 81 Mg Chew Tab* PO 81 mg DAILY MAYDA Administration Heparin Sodium (Porcine) 5,000 units 09/22/17 22:00 09/26/17 14:13 Heparin Vial(*) SUBCUT 5,000 units Q8HR MAYDA Administration Lactobacillus Rhamnosus 1 tab 09/27/17 09:00 Lactobacillus Acidophilus* PO DAILY MAYDA Loperamide HCl 2 mg 09/25/17 18:15 Imodium Cap* PO .SEE DIRECTIONS PRN DIARRHEA Ondansetron HCl 4 mg 09/22/17 15:31 Zofran Odt Tab* PO Q6H PRN NAUSEA Oxycodone HCl 5 mg 09/22/17 16:39 09/22/17 18:40 Roxycodone Tab* PO 5 mg Q4H PRN Administration PAIN - MODERATE TO SEVERE Phenazopyridine HCl 200 mg 09/22/17 16:38 09/22/17 18:44 Pyridium Tab* PO 200 mg TID PRN Administration PAIN Senna 2 tab 09/22/17 15:22 Senokot Tab* PO BEDTIME PRN CONSTIPATION Silver Sulfadiazine 1 applic 09/22/17 21:00 09/26/17 09:42 Silvadine 1%* TOPICAL 1 applic BID MAYDA Administration Terazosin HCl 1 mg 09/22/17 21:00 09/25/17 21:33 Hytrin Cap* PO 1 mg BEDTIME MAYDA Administration Vital Signs: Vital Signs Temp Pulse Resp BP Pulse Ox 97.6 F 102 16 98/66 97 09/26/17 16:53 09/26/17 16:53 09/26/17 16:53 09/26/17 16:53 09/26/17 16:53 Exam: GENERAL: alert, seems in good spirits LUNGS Clear HEART: Reg rhythm ABDOMEN: Soft, +BS EXTREMITIES: RLE in splint NEUROLOGIC: alert, oriented. Motor exam normal Assessment/Plan: 1. Right Ankle fracture/lateral malleolus fracture: NWB RLE. PT/OT 2. Rectal CA, S/P XRT and Chemo: still with diarrhea and anorexia. May need IV fluids. Imodium PRN 3. Orthostatic hypotension: Ran IVF overnight. Needs to spend more ttime upright 4. Neutropenia: resolved. counts ok 5. DVT Prophylaxis: Heparin S/Q 6. Diarrhea: doing better with dietary modifications. White food diet (potatoes/ white rice/oatmeal/yogurt/baked chicken/baked pork) Added Culturelle 6. Advanced Directives: he has voided his MOLST. Full code 09/26/17 17:32
[2017-09-26] MEDS: Terazosin CAP* 1 MG PO SCH (20:55)
[2017-09-27] MEDS: Heparin VIAL(*) 5000 UNITS/ML VIAL (FIVE THOUSAND) SUBCUT SCH ×3 (05:44→20:54)
[2017-09-27] MEDS: Silver Sulfadiazine 1%* 20 GM TOPICAL SCH ×2 (09:36→20:54)
[2017-09-27] MEDS: Aspirin 81 mg CHEW TAB* 81 MG TAB.CHEW PO SCH (09:36)
[2017-09-27] MEDS: Lactobacillus Acidophilus* 1 TAB PO SCH (09:36)
--- NOTE | 2017-09-27 20:18 | PN ---
Progress Note Date of Service: 09/27/17 Note: YAMILEX RUTLEDGE was visited. Therapy notes read and reviewed. After having prune juice and senokot yesterday, he had bouts of diarrhea today. Still taking better PO than he was and doing more Current Medications: Active Medications Generic Name Dose Route Start Last Admin Trade Name Freq PRN Reason Stop Dose Admin Acetaminophen 650 mg 09/22/17 15:22 Tylenol Tab* PO Q6H PRN FEVER/HEADACHE Aspirin 81 mg 09/23/17 09:00 09/27/17 09:36 Aspirin 81 Mg Chew Tab* PO 81 mg DAILY MAYDA Administration Heparin Sodium (Porcine) 5,000 units 09/22/17 22:00 09/27/17 14:33 Heparin Vial(*) SUBCUT 5,000 units Q8HR MAYDA Administration Lactobacillus Rhamnosus 1 tab 09/27/17 09:00 09/27/17 09:36 Lactobacillus Acidophilus* PO 1 tab DAILY MAYDA Administration Loperamide HCl 2 mg 09/25/17 18:15 Imodium Cap* PO .SEE DIRECTIONS PRN DIARRHEA Ondansetron HCl 4 mg 09/22/17 15:31 Zofran Odt Tab* PO Q6H PRN NAUSEA Oxycodone HCl 5 mg 09/22/17 16:39 09/22/17 18:40 Roxycodone Tab* PO 5 mg Q4H PRN Administration PAIN - MODERATE TO SEVERE Phenazopyridine HCl 200 mg 09/22/17 16:38 09/22/17 18:44 Pyridium Tab* PO 200 mg TID PRN Administration PAIN Senna 2 tab 09/22/17 15:22 09/26/17 20:55 Senokot Tab* PO 2 tab BEDTIME PRN Administration CONSTIPATION Silver Sulfadiazine 1 applic 09/22/17 21:00 09/27/17 09:36 Silvadine 1%* TOPICAL 1 applic BID MAYDA Administration Terazosin HCl 1 mg 09/22/17 21:00 09/26/17 20:55 Hytrin Cap* PO 1 mg BEDTIME MAYDA Administration Vital Signs: Vital Signs Temp Pulse Resp BP Pulse Ox 97.8 F 108 16 108/58 99 09/27/17 15:57 09/27/17 15:57 09/27/17 15:57 09/27/17 15:57 09/27/17 16:46 Exam: GENERAL: alert, seems in good spirits LUNGS Clear HEART: Reg rhythm ABDOMEN: Soft, +BS EXTREMITIES: RLE in splint NEUROLOGIC: alert, oriented. Motor exam normal Assessment/Plan: 1. Right Ankle fracture/lateral malleolus fracture: NWB RLE. PT/OT 2. Rectal CA, S/P XRT and Chemo: still with diarrhea and anorexia. Imodium PRN 3. Orthostatic hypotension: Needs to spend more time upright 4. Neutropenia: resolved. counts ok 5. DVT Prophylaxis: Heparin S/Q 6. Diarrhea: doing better with dietary modifications. White food diet (potatoes/ white rice/oatmeal/yogurt/baked chicken/baked pork) Added Culturelle 6. Advanced Directives: he has voided his MOLST. Full code 09/27/17 20:18
[2017-09-27] MEDS: Terazosin CAP* 1 MG PO SCH (20:46)
[2017-09-28] MEDS: Heparin VIAL(*) 5000 UNITS/ML VIAL (FIVE THOUSAND) SUBCUT SCH ×3 (06:28→21:25)
[2017-09-28] MEDS: Aspirin 81 mg CHEW TAB* 81 MG TAB.CHEW PO SCH (08:16)
[2017-09-28] MEDS: Lactobacillus Acidophilus* 1 TAB PO SCH (08:16)
[2017-09-28] MEDS: Silver Sulfadiazine 1%* 20 GM TOPICAL SCH ×2 (09:22→21:25)
--- NOTE | 2017-09-28 18:17 | PN ---
Progress Note Date of Service: 09/28/17 Note: YAMILEX RUTLEDGE was visited. Therapy notes read and reviewed. He seems to be doing better. Bowels are settling down. He is scheduled for discharge on Monday. Current Medications: Active Medications Generic Name Dose Route Start Last Admin Trade Name Freq PRN Reason Stop Dose Admin Acetaminophen 650 mg 09/22/17 15:22 Tylenol Tab* PO Q6H PRN FEVER/HEADACHE Aspirin 81 mg 09/23/17 09:00 09/28/17 08:16 Aspirin 81 Mg Chew Tab* PO 81 mg DAILY MAYDA Administration Heparin Sodium (Porcine) 5,000 units 09/22/17 22:00 09/28/17 14:25 Heparin Vial(*) SUBCUT 5,000 units Q8HR MAYDA Administration Lactobacillus Rhamnosus 1 tab 09/27/17 09:00 09/28/17 08:16 Lactobacillus Acidophilus* PO 1 tab DAILY MAYDA Administration Loperamide HCl 2 mg 09/25/17 18:15 Imodium Cap* PO .SEE DIRECTIONS PRN DIARRHEA Ondansetron HCl 4 mg 09/22/17 15:31 Zofran Odt Tab* PO Q6H PRN NAUSEA Oxycodone HCl 5 mg 09/22/17 16:39 09/22/17 18:40 Roxycodone Tab* PO 5 mg Q4H PRN Administration PAIN - MODERATE TO SEVERE Phenazopyridine HCl 200 mg 09/22/17 16:38 09/22/17 18:44 Pyridium Tab* PO 200 mg TID PRN Administration PAIN Senna 2 tab 09/22/17 15:22 09/26/17 20:55 Senokot Tab* PO 2 tab BEDTIME PRN Administration CONSTIPATION Silver Sulfadiazine 1 applic 09/22/17 21:00 09/28/17 09:22 Silvadine 1%* TOPICAL 1 applic BID MAYDA Administration Terazosin HCl 1 mg 09/22/17 21:00 09/27/17 20:46 Hytrin Cap* PO 1 mg BEDTIME MAYDA Administration Vital Signs: Vital Signs Temp Pulse Resp BP Pulse Ox 97.9 F 102 18 104/61 96 09/28/17 16:42 09/28/17 16:42 09/28/17 16:42 09/28/17 16:42 09/28/17 16:42 Exam: GENERAL: alert, seems in good spirits LUNGS Clear HEART: Reg rhythm ABDOMEN: Soft, +BS EXTREMITIES: RLE in splint NEUROLOGIC: alert, oriented. Motor exam normal Assessment/Plan: 1. Right Ankle fracture/lateral malleolus fracture: NWB RLE. PT/OT 2. Rectal CA, S/P XRT and Chemo: still with diarrhea and anorexia. Imodium PRN 3. Orthostatic hypotension: Has been spending more time upright and he's doing ok. 4. Neutropenia: resolved. counts ok 5. DVT Prophylaxis: Heparin S/Q 6. Diarrhea: doing better with dietary modifications. White food diet (potatoes/ white rice/oatmeal/yogurt/baked chicken/baked pork) Added Culturelle 6. Advanced Directives: he has voided his MOLST. Full code 09/28/17 18:18
[2017-09-28] MEDS: Terazosin CAP* 1 MG PO SCH (21:19)
[2017-09-29] MEDS: Heparin VIAL(*) 5000 UNITS/ML VIAL (FIVE THOUSAND) SUBCUT SCH ×3 (06:12→21:52)
--- NOTE | 2017-09-29 09:20 | PN ---
Progress Note - Progress Note Date of Service: 09/29/17 SOAP: Subjective: []Better. Eating more and careful with his diet. He is very concerned with diarrhea. Had some episodes on Mon, nothing Thurs or this am. No formed stool. No fevers, skin is healing. He has cast on and home environment established to accommodate immobility. Acetaminophen (Tylenol Tab*) 650 mg PO Q6H PRN PRN Reason: FEVER/HEADACHE Aspirin (Aspirin 81 Mg Chew Tab*) 81 mg PO DAILY [facility] Last Admin: 09/28/17 08:16 Dose: 81 mg Heparin Sodium (Porcine) (Heparin Vial(*)) 5,000 units SUBCUT Q8HR [facility] Last Admin: 09/29/17 06:12 Dose: 5,000 units Lactobacillus Rhamnosus (Lactobacillus Acidophilus*) 1 tab PO DAILY [facility] Last Admin: 09/28/17 08:16 Dose: 1 tab Ondansetron HCl (Zofran Odt Tab*) 4 mg PO Q6H PRN PRN Reason: NAUSEA Oxycodone HCl (Roxycodone Tab*) 5 mg PO Q4H PRN PRN Reason: PAIN - MODERATE TO SEVERE Last Admin: 09/22/17 18:40 Dose: 5 mg Phenazopyridine HCl (Pyridium Tab*) 200 mg PO TID PRN PRN Reason: PAIN Last Admin: 09/22/17 18:44 Dose: 200 mg Silver Sulfadiazine (Silvadine 1%*) 1 applic TOPICAL BID [facility] Last Admin: 09/28/17 21:25 Dose: 1 applic Terazosin HCl (Hytrin Cap*) 1 mg PO BEDTIME [facility] Last Admin: 09/28/17 21:19 Dose: 1 mg Objective: [] Vital Signs Temp Pulse Resp BP Pulse Ox 97.7 F 104 18 105/60 97 09/29/17 06:16 09/29/17 06:16 09/29/17 06:16 09/29/17 06:16 09/29/17 06:16 HEENT pale. OM moist, no thrush CTA RRR S1S2 +BS NT ND - skin well healed anteriorly. there are a few ulcerations at anus, mostly healed, no infection. Assessment: []76 year old in [facility] after chemotherapy with 5FU/mitomycin and radiation. Improved from last week but still recovering bowl function. Plan: []1. Possible D/C tomorrow. Will see him in the am and plan on follow up early next week if he goes home. 2. Diarrhea second to XRT as well as antibiotics and mitomycin. - Improving daily, continue current diet and will follow. - Ok to go home, can call me over weekend if there are issues. - No immodium or laxatives unless clear direction. Do not take Senna unless he feels constipated, ok to go a day or 2 w/o BM. 3. Will follow up ortho re cast
[2017-09-29] MEDS: Silver Sulfadiazine 1%* 20 GM TOPICAL SCH ×2 (09:35→21:53)
[2017-09-29] MEDS: Lactobacillus Acidophilus* 1 TAB PO SCH (09:59)
[2017-09-29] MEDS: Aspirin 81 mg CHEW TAB* 81 MG TAB.CHEW PO SCH (09:59)
--- NOTE | 2017-09-29 10:12 | PN ---
Progress Note Date of Service: 09/29/17 Note: YAMILEX RUTLEDGE was visited. Nursing and therapy notes read and reviewed. Appreciate Dr. Shipley's follow-up. No chest pain, shortness of breath or abdominal pain. Feels he will be ready to go home tomorrow. Current Medications: Active Medications Generic Name Dose Route Start Last Admin Trade Name Freq PRN Reason Stop Dose Admin Acetaminophen 650 mg 09/22/17 15:22 Tylenol Tab* PO Q6H PRN FEVER/HEADACHE Aspirin 81 mg 09/23/17 09:00 09/29/17 09:59 Aspirin 81 Mg Chew Tab* PO 81 mg DAILY MAYDA Administration Heparin Sodium (Porcine) 5,000 units 09/22/17 22:00 09/29/17 06:12 Heparin Vial(*) SUBCUT 5,000 units Q8HR MAYDA Administration Lactobacillus Rhamnosus 1 tab 09/27/17 09:00 09/29/17 09:59 Lactobacillus Acidophilus* PO 1 tab DAILY MAYDA Administration Ondansetron HCl 4 mg 09/22/17 15:31 Zofran Odt Tab* PO Q6H PRN NAUSEA Oxycodone HCl 5 mg 09/22/17 16:39 09/22/17 18:40 Roxycodone Tab* PO 5 mg Q4H PRN Administration PAIN - MODERATE TO SEVERE Phenazopyridine HCl 200 mg 09/22/17 16:38 09/22/17 18:44 Pyridium Tab* PO 200 mg TID PRN Administration PAIN Silver Sulfadiazine 1 applic 09/22/17 21:00 09/29/17 09:35 Silvadine 1%* TOPICAL 1 applic BID MAYDA Administration Terazosin HCl 1 mg 09/22/17 21:00 09/28/17 21:19 Hytrin Cap* PO 1 mg BEDTIME MAYDA Administration Vital Signs: Vital Signs Temp Pulse Resp BP Pulse Ox 97.7 F 104 18 105/60 97 09/29/17 06:16 09/29/17 06:16 09/29/17 06:16 09/29/17 06:16 09/29/17 06:16 Exam: GENERAL: alert and appropriate LUNGS Clear to auscultation bilaterally HEART: Regular rate and rhythm ABDOMEN: Soft, +BS, non-tender, non-distended EXTREMITIES: RLE in splint. No edema. NEUROLOGIC: BLE motor 5/5 with limited testing of right ankle due to splint. Normal BLE sensation. Assessment/Plan: 1. Right Ankle fracture/lateral malleolus fracture: NWB RLE. PT/OT. f/u Dr. Dobbs 2. Rectal CA, S/P XRT and Chemo: diarrhea has stopped. Per Dr. Shipley no imodium or laxatives and he can call with concerns at home. 3. Orthostatic hypotension: Has been spending more time upright and doing better. Off BP meds. 4. Neutropenia: resolved. 5. DVT Prophylaxis: Heparin S/Q 6. Diarrhea: doing better with dietary modifications. White food diet (potatoes/ white rice/oatmeal/yogurt/baked chicken/baked pork) Added Culturelle 7. Advanced Directives: he has voided his MOLST. Full code 8. Anticipate d/c tomorrow to home. 09/29/17 10:11
[2017-09-29] MEDS: Terazosin CAP* 1 MG PO SCH (21:52)
[2017-09-30] MEDS: Heparin VIAL(*) 5000 UNITS/ML VIAL (FIVE THOUSAND) SUBCUT SCH (06:22)
[2017-09-30 06:26] VITALS: BP 110/64
--- NOTE | 2017-09-30 08:24 | PN ---
Progress Note - Progress Note Date of Service: 09/30/17 SOAP: Subjective: []Better, well formed stool yesterday. Feels better about going home. Acetaminophen (Tylenol Tab*) 650 mg PO Q6H PRN PRN Reason: FEVER/HEADACHE Aspirin (Aspirin 81 Mg Chew Tab*) 81 mg PO DAILY [facility] Last Admin: 09/29/17 09:59 Dose: 81 mg Heparin Sodium (Porcine) (Heparin Vial(*)) 5,000 units SUBCUT Q8HR [facility] Last Admin: 09/30/17 06:22 Dose: 5,000 units Lactobacillus Rhamnosus (Lactobacillus Acidophilus*) 1 tab PO DAILY [facility] Last Admin: 09/29/17 09:59 Dose: 1 tab Ondansetron HCl (Zofran Odt Tab*) 4 mg PO Q6H PRN PRN Reason: NAUSEA Oxycodone HCl (Roxycodone Tab*) 5 mg PO Q4H PRN PRN Reason: PAIN - MODERATE TO SEVERE Last Admin: 09/22/17 18:40 Dose: 5 mg Phenazopyridine HCl (Pyridium Tab*) 200 mg PO TID PRN PRN Reason: PAIN Last Admin: 09/22/17 18:44 Dose: 200 mg Silver Sulfadiazine (Silvadine 1%*) 1 applic TOPICAL BID [facility] Last Admin: 09/29/17 21:53 Dose: 1 applic Terazosin HCl (Hytrin Cap*) 1 mg PO BEDTIME [facility] Last Admin: 09/29/17 21:52 Dose: 1 mg Objective: [] Vital Signs Temp Pulse Resp BP Pulse Ox 98.5 F 95 16 110/64 97 09/30/17 06:25 09/30/17 06:25 09/30/17 06:25 09/30/17 06:25 09/30/17 06:25 HEENT pale. OM moist, no thrush CTA RRR S1S2 +BS NT ND - skin well healed anteriorly. there are a few ulcerations at anus, mostly healed, no infection. Assessment: []76 year old in [facility] after chemotherapy with 5FU/mitomycin and radiation. Improved bowl function yesterday with solid stool. Plan: []1. Can go home today. Will see him in the am and plan on follow up early next week if he goes home. 2. Diarrhea second to XRT as well as antibiotics and mitomycin. - Improving daily, continue current diet - Ok to go home, can call me over weekend if there are issues. - No immodium or laxatives unless clear direction. Do not take Senna unless he feels constipated, ok to go a day or 2 w/o BM. 3. Will follow up ortho re cast
[2017-09-30] MEDS: Lactobacillus Acidophilus* 1 TAB PO SCH (08:45)
[2017-09-30] MEDS: Aspirin 81 mg CHEW TAB* 81 MG TAB.CHEW PO SCH (08:45)
--- NOTE | 2017-09-30 10:41 | PN ---
Progress Note Date of Service: 09/30/17 Note: YAMILEX RUTLEDGE was visited. Nursing and therapy notes read and reviewed. He saw Dr. Shipley this morning and feels good about going home today. No chest pain, shortness of breath or abdominal pain. Current Medications: Active Medications Generic Name Dose Route Start Last Admin Trade Name Freq PRN Reason Stop Dose Admin Acetaminophen 650 mg 09/22/17 15:22 Tylenol Tab* PO Q6H PRN FEVER/HEADACHE Aspirin 81 mg 09/23/17 09:00 09/30/17 08:45 Aspirin 81 Mg Chew Tab* PO 81 mg DAILY MAYDA Administration Heparin Sodium (Porcine) 5,000 units 09/22/17 22:00 09/30/17 06:22 Heparin Vial(*) SUBCUT 5,000 units Q8HR MAYDA Administration Lactobacillus Rhamnosus 1 tab 09/27/17 09:00 09/30/17 08:45 Lactobacillus Acidophilus* PO 1 tab DAILY MAYDA Administration Ondansetron HCl 4 mg 09/22/17 15:31 Zofran Odt Tab* PO Q6H PRN NAUSEA Oxycodone HCl 5 mg 09/22/17 16:39 09/22/17 18:40 Roxycodone Tab* PO 5 mg Q4H PRN Administration PAIN - MODERATE TO SEVERE Phenazopyridine HCl 200 mg 09/22/17 16:38 09/22/17 18:44 Pyridium Tab* PO 200 mg TID PRN Administration PAIN Silver Sulfadiazine 1 applic 09/22/17 21:00 09/29/17 21:53 Silvadine 1%* TOPICAL 1 applic BID MAYDA Administration Terazosin HCl 1 mg 09/22/17 21:00 09/29/17 21:52 Hytrin Cap* PO 1 mg BEDTIME MAYDA Administration Vital Signs: Vital Signs Temp Pulse Resp BP Pulse Ox 98.5 F 95 16 110/64 97 09/30/17 06:25 09/30/17 06:25 09/30/17 06:25 09/30/17 06:25 09/30/17 06:25 Exam: GENERAL: alert and appropriate LUNGS Clear to auscultation bilaterally HEART: Regular rate and rhythm ABDOMEN: Soft, +BS, non-tender, non-distended EXTREMITIES: RLE in splint. No edema. NEUROLOGIC: BLE motor 5/5 with limited testing of right ankle due to splint. Normal BLE sensation. Assessment/Plan: 1. Right Ankle fracture/lateral malleolus fracture: NWB RLE. PT/OT. f/u Dr. Dobbs 2. Rectal CA, S/P XRT and Chemo: diarrhea has stopped and had 2 normal BMs overnight. Per Dr. Shipley no imodium or laxatives and he can call with concerns at home. 3. Orthostatic hypotension: Has been spending more time upright and doing better. Off BP meds. I cautioned him to sit if he feels lightheaded. 4. Neutropenia: resolved. 5. DVT Prophylaxis: Heparin S/Q 6. Diarrhea: resolved. 7. Advanced Directives: he has voided his MOLST. Full code 8. Anticipate d/c today 09/30/17 10:41
[2017-09-30] MEDS: Silver Sulfadiazine 1%* 20 GM TOPICAL SCH (11:30)
--- NOTE | 2017-09-30 15:06 | DS ---
REHABILITATION DISCHARGE SUMMARY: DATE OF ADMISSION: 09/22/17 DATE OF DISCHARGE: 09/30/17 REASON FOR ADMISSION: Right ankle fracture and rectal cancer. HISTORY OF PRESENT ILLNESS: For full details of his acute hospitalization leading up to his admission, please see the note dictated by Dr. Barnes on . HOSPITAL COURSE: During his time on the RU, he remained off any blood pressure medications and was quite stable. He did not have any other syncopal events, but has been noted to have orthostatic hypotension. He was spending more time upright and this seemed to be helping. He was cautioned that if he feels lightheaded, he needs to sit down once he is at home. He developed diarrhea felt secondary to his prior radiation therapy and antibiotics. This resolved itself with some help of Imodium briefly. Within the last 24 hours of discharge, he has had 2 bowel movements and will follow up with Dr. Shipley on concerns of when he may need to take additional medications. He will follow up with Dr. Shipley next week. He had neutropenic fever during his acute hospitalization. This resolved with antibiotics. He continued with toe touch weightbearing to his right lower extremity for his right ankle fracture. He is in a boot at this time and will follow up with Dr. Dobbs next week. He received subcutaneous heparin for DVT prophylaxis. He really has not experienced much in the way of pain and can just use Tylenol on an as-needed basis. He participated well with physical therapy. At the time of discharge, he is independent with bed mobility, transfers with or without a rolling walker , ambulation with a rolling walker 50 feet maintaining his precautions. He is also independent with wheelchair mobility within the community. He also participated well with occupational therapy and at the time of discharge, he is independent with eating. He is independent for bathing and tub transfers with a seat or supine for bathing. He is also independent for dressing with adaptive equipment. He is independent with stand pivot transfer from wheelchair to commode or using front- wheeled walker for toilet transfers. He is independent at a wheelchair level and occasionally standing with his wheelchair locked behind for home management and cooking. He has been doing toe touch weightbearing to the right lower extremity. DISCHARGE CONDITION: Good. DISCHARGE DISPOSITION: Home. DISCHARGE MEDICATIONS: 1. Acetaminophen 650 mg q.6 hours p.r.n. 2. Aspirin 81 mg q. day. 3. Lactobacillus 1 tablet q. day. 4. Silver sulfadiazine 1% topically twice a day. 5. Terazosin 1 mg q.h.s. 6. Atorvastatin 20 mg q.p.m. 7. PreserVision AREDS 1 capsule twice a day. 8. Glucosamine chondroitin tablet, 1 tab twice a day. DISCHARGE DIAGNOSES: 1. Right ankle fracture. 2. Rectal cancer. 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 4. 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 5. Neutropenic fever. 6. Orthostatic hypotension. FOLLOWUP INSTRUCTIONS: 1. He is to see Dr. Dobbs next week. 2. Follow up with Dr. Shipley next week. 3. Follow up with Dr. Montalvo, his primary care provider. 4. A referral has been [facility] for [facility] care that will start on Monday. [id number]/CPS #: [id number] MTDD
== END 2017-09-30 14:10 | disposition home health service (06) | DRG 560 ==
LOC: PMRU 15:08
PROVIDERS: ADMIT Physical Medicine & Rehabilitation; ATTEND Physical Medicine & Rehabilitation
PROC: F07Z5ZZ Bed Mobility Treatment (ICD-10-PCS; principal; 2017-09-22)
PROC: F07Z9ZZ Gait Training/Functional Ambulation Treatment (ICD-10-PCS; 2017-09-22)
PROC: F07Z8ZZ Transfer Training Treatment (ICD-10-PCS; 2017-09-22)
PROC: F08Z0ZZ Bathing/Showering Techniques Treatment (ICD-10-PCS; 2017-09-22)
PROC: F08Z1ZZ Dressing Techniques Treatment (ICD-10-PCS; 2017-09-22)
PROC: F08Z3ZZ Feeding/Eating Treatment (ICD-10-PCS; 2017-09-22)
DX: S82.61XD Displaced fracture of lateral malleolus of right fibula, subsequent encounter for closed fracture with routine healing (principal); C20 Malignant neoplasm of rectum; W18.30XD Fall on same level, unspecified, subsequent encounter; K62.7 Radiation proctitis; A08.8 Other specified intestinal infections; D70.8 Other neutropenia; K12.33 Oral mucositis (ulcerative) due to radiation; R50.81 Fever presenting with conditions classified elsewhere; Y92.239 Unspecified place in hospital as the place of occurrence of the external cause; I95.1 Orthostatic hypotension; Z79.01 Long term (current) use of anticoagulants; Z91.81 History of falling; Z79.82 Long term (current) use of aspirin; Z79.899 Other long term (current) drug therapy; T21.02XD Burn of unspecified degree of abdominal wall, subsequent encounter
CPT/HCPCS: 36415; 80053; 85025; 99232; A9270-GY; J1642; J1644

== ENCOUNTER 2018-05-22 07:26 | Emergency (ER) | payer MEDICARE ==
--- NOTE | 2018-05-22 07:52 | ED ---
Back Pain - HPI Summary HPI Summary: A 77 y/o M presents to ED with c/o L-sided back pain onset this AM approx 0500 likely due to a kidney stone. His pain was a 7/8 out of 10, but rates it as 1 out of 10 at bedside. Associated sx: mild L testicular pain yesterday, nausea. Denies: fever, chills, vomiting. He has not peed this AM. He's had two previous kidney stones, 12 years apart, starting in 1992. He sees Dr. Jennings, urology. He and Dr. Jennings have been following this stone for the last 3 years. PMHx: Anal CA last summer. Non-smoker. NKDA. 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 neg: chills, vomiting. Negative: Fever - Allergies/Home Medications Allergies/Adverse Reactions: Allergies Allergy/AdvReac Type Severity Reaction Status Date / Time No Known Allergies Allergy Verified 05/22/18 07:32 Home Medications: Home Medications Tamsulosin CAP* [Flomax CAP*] 0.4 mg PO DAILY 05/22/18 [History Confirmed ] PMH/Surg Hx/FS Hx/Imm Hx Previously Healthy: No Endocrine/Hematology History: Denies: Hx Diabetes Cardiovascular History: Reports: Hx Hypertension History: Reports: Hx Kidney Stones - HAS HAD STONES 3 TIMES, REMOVED SURGICALLY TWICE Denies: Hx Dialysis Sensory History: Reports: Hx Contacts or Glasses Denies: Hx Legally Blind, Hx Deafness, Hx Hearing Aid Opthamlomology History: Reports: Hx Contacts or Glasses Denies: Hx Legally Blind Neurological History: Reports: Other Neuro Impairments/Disorders - vertigo Denies: Hx Dementia, Hx Seizures - Cancer History Cancer Type, Location and Year: Rectal Ca dx in Apr 2017. Treated with radiation and chemo. Last round of chemo 09/04-09/08/17. - Surgical History Surgery Procedure, Year, and Place: Bilat Inguinal Hernia repair, Kidney stones removed Infectious Disease History: No Infectious Disease History: Denies: Traveled Outside the [place] in Last 30 Days - Family History Known Family History: Positive: Cardiac Disease - CHF - grandfather, Hypertension - Social History Occupation: Retired Lives: With Family Alcohol Use: Occasionally Hx Substance Use: No Substance Use Type: Reports: None Hx Tobacco Use: No Smoking Status (MU): Never Smoked Tobacco Review of Systems Negative: Fever, Chills Positive: Nausea. Negative: Vomiting Positive: pain - mild L tresticular pain, other - pos: urinary retention Musculoskeletal: Other - pos: L-sided back pain All Other Systems Reviewed And Are Negative: Yes Physical Exam - Summary Physical Exam Summary: GENERAL: Patient is a well-developed and nourished Male who is lying comfortable in the stretcher. Patient is not in any acute respiratory distress. HEAD AND FACE: Normocephalic EYES: PERRLA, EOMI x 2. EARS: Hearing grossly intact. MOUTH: Oropharynx within normal limits. NECK: Supple, trachea is midline, no adenopathy, no JVD, no carotid bruit. CHEST: Symmetric, no tenderness at palpation LUNGS: Clear to auscultation bilaterally. No wheezing or crackles. CVS: Regular rate and rhythm, S1 and S2 present, no murmurs or gallops appreciated. ABDOMEN: Soft, non-tender. Bowel sounds are normal. No abdominal abnormal pulsations. EXTREMITIES: Full ROM in all major joints, no edema, no cyanosis or clubbing. NEURO: Alert and oriented x 3. No acute neurological deficits. Speech is normal and follows commands. SKIN: Dry and warm Triage Information Reviewed: Yes Vital Signs On Initial Exam: Initial Vitals Temp Pulse Resp BP Pulse Ox 98.3 F 85 17 142/89 97 05/22/18 07:27 05/22/18 07:27 05/22/18 07:27 05/22/18 07:27 05/22/18 07:27 Vital Signs Reviewed: Yes Diagnostics - Vital Signs Vital Signs Temp Pulse Resp BP Pulse Ox 05/22/18 07:27 98.3 F 85 17 142/89 97 - Laboratory Result Diagrams: 05/22/18 08:24 05/22/18 08:24 Lab Statement: Any lab studies that have been ordered have been reviewed, and results considered in the medical decision making process. - CT ABD/PEL CT CT Interpretation Completed By: Radiologist Summary of CT Findings: IMPRESSION: 1. DISTAL LEFT URETERAL STONE WITH MILD LEFT HYDRONEPHROSIS. 2. ENLARGED PROSTATE. 3. ATHEROSCLEROSIS. ED provider has reviewed this report. Re-Evaluation - Re-Evaluation 1 Re-Evaluation Time: 09:31 Change: Unchanged Comment: Providing update: Spoke with Dr. Jennings, to f/u in office; awaiting UA results. Back Pain Course/Dx - Course Course Of Treatment: Pt is a 77 y/o M with known kidney stone presents to ED with L-sided back pain onset approx 0500. Associated sx: mild L testicular pain yesterday, nausea but no vomiting. He sees Dr. Jennings, urology, and they have been following this stone for the last 3 years. Labwork is remarkable for MCH: 32; BUN/C ratio: 29.0; glucose: 106. UA results show 2+ blood, 3+ RBCs, ascorbic acid present. ABD/PEL CT shows "1. DISTAL LEFT URETERAL STONE WITH MILD LEFT HYDRONEPHROSIS. 2. ENLARGED PROSTATE. 3. ATHEROSCLEROSIS.". Dr. Jennings, urology, called at 0900 and spoke with Mery WESTON, and said the pt can be discharged home and to f/u in office. I discussed results with patient and he reports feeling better. He is hemodynamically stable and safe for discharge. Strict return precautions given and he will otherwise follow up with his PCP and Dr. Jennings, urology. Patient is already on Flomax, will prescribe Motrin and Percocet. - Diagnoses Provider Diagnoses: Kidney stone Discharge - Sign-Out/Discharge Documenting (check all that apply): Patient Departure - D/C Patient Received Moderate/Deep Sedation with Procedure: No - Discharge Plan Condition: Stable Disposition: HOME Prescriptions: Ibuprofen TAB* [Motrin TAB* 800 MG] 800 mg PO Q6H 20 Days tab Ibuprofen TAB* [Motrin TAB* 800 MG] 800 mg PO Q6H #20 tab oxyCODONE/Acetamin 5/325 MG* [Percocet 5/325 TAB*] 1 tab PO Q6H PRN #16 tab MDD 4 PRN Reason: Pain Patient Education Materials: Ibuprofen (By mouth), Oxycodone/Acetaminophen (By mouth), Kidney Stones (ED) Referrals: Vinicio Montalvo MD [Primary Care Provider] - 3 Days Mickey Jennings MD [Medical Doctor] - 1 Day Additional Instructions: Follow up with your primary care physician in 1-[address] Jennings, urology, to follow-up in office. RETURN TO THE EMERGENCY DEPARTMENT FOR CHANGING OR WORSENING SYMPTOMS. - Billing Disposition and Condition Condition: STABLE Disposition: Home - Attestation Statements Document Initiated by Yvesibe: Yes Documenting Scribe: Bill Kennedy Provider For Whom Yvesibe is Documenting (Include Credential): Dr. Ally Jhaveri MD Scribe Attestation: María, Bill Kennedy, scribed for Dr. Ally Jhaveri MD on 05/22/18 at 1450. Scribe Documentation Reviewed: Yes Provider Attestation: The documentation as recorded by the Bill zarate accurately reflects the service I personally performed and the decisions made by me, Dr. Ally Jhaveri MD Status of Scribe Document: Viewed
[2018-05-22] MEDS ORDERED: Ketorolac INJ* 30 MG/ML 1 ML VIAL IV PUSH ONE (08:01)
[2018-05-22] MEDS ORDERED: Ondansetron INJ* 2 MG/ML VIAL IV ONE (08:01)
[2018-05-22] MEDS ORDERED: NS 0.9% 1000 ML** 1,000 ML IV ONE (08:01)
[2018-05-22 08:36] LABS: ABS Basophils 0 10^3/ul (0-0.2); ABS Eosinophils 0.2 10^3/ul (0-0.6); ABS Lymphocytes 1.1 10^3/ul (1.0-4.8); ABS Monocytes 0.5 10^3/ul (0-0.8); ABS Neutrophils 3.7 10^3/ul (1.5-7.7); ABS Nucleated RBC 0 10^3/ul; Eosinophil % 2.9 %; Hematocrit 43 % (42-52); Hemoglobin 14.3 g/dl (14.0-18.0); Lymphocyte % 20.3 %; Mean Corpuscular HGB Conc 33 g/dl (31-36); Mean Corpuscular Hemoglobin 32 pg (27-31); Mean Corpuscular Volume 94 fL (80-94); Mean Platelet Volume 7.4 fL (7.4-10.4); Nucleated Red Blood Cells % 0; Platelet Count 177 10^3/ul (150-450); Red Blood Count 4.55 10^6/ul (4.00-5.40); Red Cell Distribution Width 15 % (10.5-15); White Blood Count 5.5 10^3/ul (3.5-10.8)
[2018-05-22 08:54] LABS: ALT 28 U/L (7-52); AST 24 U/L (13-39); Albumin/Globulin Ratio 1.7 (1-3); Alkaline Phosphatase 57 U/L (34-104); Anion Gap 7 mmol/L (2-11); Blood Urea Nitrogen 20 mg/dL (6-24); C Reactive Protein < 1.00 mg/L (<8.01); CO2 Carbon Dioxide 26 mmol/L (22-32); Chloride 106 mmol/L (101-111); EGFR African American 135.3 (>60); EGFR Non-African American 111.8 (>60); Globulin 2.4 g/dL (2-4); Glucose 106 mg/dL (70-100); Potassium 3.8 mmol/L (3.5-5.0); Sodium 139 mmol/L (135-145); Total Protein 6.4 g/dL (6.4-8.9)
[2018-05-22 09:32] LABS: Urine Appearance Cloudy; Urine Bacteria Absent (Absent); Urine Bilirubin Negative (Negative); Urine Blood 2+ (Negative); Urine Color Yellow; Urine Glucose Negative (Negative); Urine Ketones Negative (Negative); Urine Nitrite Negative (Negative); Urine Protein Negative (Negative); Urine Red Blood Cell 3+(>10/hpf) (Absent); Urine Specific Gravity 1.019 (1.010-1.030); Urine Urobilinogen Negative (Negative); Urine White Blood Cell Trace(0-5/hpf) (Absent)
[2018-05-22 10:18] VITALS: BP 146/90
== END 2018-05-22 10:17 | disposition home or self-care (01) ==
LOC: ED 07:26
DX: N13.2 Hydronephrosis with renal and ureteral calculous obstruction (principal); Z87.442 Personal history of urinary calculi; N40.0 Benign prostatic hyperplasia without lower urinary tract symptoms; I70.0 Atherosclerosis of aorta; I10 Essential (primary) hypertension; Z85.048 Personal history of other malignant neoplasm of rectum, rectosigmoid junction, and anus
CPT/HCPCS: 36415; 74176; 80053; 81003; 81015; 83605; 83690; 85025; 86140; 87086; 96360; 99283; J1885; J2405

== ENCOUNTER 2019-02-19 15:37 | Emergency (ER) | payer MEDICARE ==
--- NOTE | 2019-02-19 19:23 | ED ---
Complex/Multi-Sys Presentation - HPI Summary HPI Summary: Patient is a 78 y/o M presenting to the ED for a chief complaint of right-sided neck pain that radiates to the shoulder and began about 2 weeks ago. He reports that the pain worsens with movement and bearing weight on the right side. He describes the pain as muscular. Approximately one week ago, the right-sided neck pain began to radiate to the right upper back as well. On 02/16/19, he had an episode of shortness of breath and right-sided chest pain that has since resolved. At that time, the chest pain is described as having a sharp sensation that worsened with standing or sitting. He also admits a chronic dry cough at baseline. Patient denies fever, chills, nausea, vomiting, abdominal pain, weakness, numbness, or paresthesia. On 02/19/19, patient saw Dr. Orona who performed an EKG that showed tachycardia. He was sent to [facility] for further workup. PMHx is significant for HTN, HLD, arthritis, tinnitus, and anal cancer for which he received chemotherapy and radiation therapy 18 months ago. Patient is retired. - History Of Current Complaint Chief Complaint: EDGeneral Time Seen by Provider: 02/19/19 19:13 Hx Obtained From: Patient Onset/Duration: Sudden Onset, Still Present Timing: Intermittent, Lasting: Severity Currently: Moderate Severity Initially: Moderate Character: Sharp Associated Signs And Symptoms: Positive: SOB - Resolved, Cough - Chronic dry at baseline, Chest Pain - Resolved. Negative: Weakness, Nausea, Vomiting, Fever - Allergies/Home Medications Allergies/Adverse Reactions: Allergies Allergy/AdvReac Type Severity Reaction Status Date / Time No Known Allergies Allergy Verified 02/19/19 16:02 Home Medications: Home Medications Atorvastatin* [Lipitor*] 10 mg PO BEDTIME 02/19/19 [History Confirmed 02/19/19] Lisinopril TAB* [Prinivil TAB*] 5 mg PO DAILY 02/19/19 [History Confirmed ] Tamsulosin CAP* [Flomax CAP*] 0.4 mg PO DAILY 02/19/19 [History Confirmed ] Vit C/E/Zn/Coppr/Lutein/Zeaxan [Preservision Areds 2 Softgel] 1 each PO BID 12/29 [History Confirmed 02/19/19] PMH/Surg Hx/FS Hx/Imm Hx Previously Healthy: Yes Endocrine/Hematology History: Denies: Hx Diabetes Cardiovascular History: Reports: Hx Hypercholesterolemia, Hx Hypertension - on meds GI History: Reports: Other GI Disorders - 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, gastrocolic effect History: Reports: Hx Kidney Stones - HAS HAD STONES 3 TIMES, REMOVED SURGICALLY TWICE Denies: Hx Dialysis Musculoskeletal History: Reports: Hx Arthritis - minor, all over Sensory History: Reports: Hx Cataracts - [place], 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 Treated with radiation and chemo. Last round of chemo 09/04-09/08/17. Hx Chemotherapy: Yes - Surgical History Surgical History: Yes Surgery Procedure, Year, and Place: Bilat Inguinal Hernia repair, 2005. Kidney stones removed, 1992, 2005. [place] cataracts, 2018, [facility] Hx Anesthesia Reactions: No Infectious Disease History: No Infectious Disease History: Denies: Traveled Outside the [place] in Last 30 Days - Family History Known Family History: Positive: Cardiac Disease - CHF - grandfather, Hypertension - Social History Occupation: Retired Lives: With Family Alcohol Use: Weekly Alcohol Amount: 1 per week Hx Substance Use: No Substance Use Type: Reports: None Hx Tobacco Use: No Smoking Status (MU): Never Smoked Tobacco Review of Systems Negative: Fever, Chills Positive: Chest Pain - Right-sided, resolved Positive: Shortness Of Breath - Resolved, Cough - Chronic dry at baseline Negative: Abdominal Pain, Vomiting, Nausea Positive: Myalgia - Right side of neck radiating to the shoulder and upper back Negative: Weakness, Paresthesia, Numbness All Other Systems Reviewed And Are Negative: Yes Physical Exam - Summary Physical Exam Summary: Appearance: Well-appearing, Well-nourished, lying in bed comfortably Skin: Warm, dry, no obvious rash Eyes: sclera anicteric, no conjunctival pallor ENT: mucous membranes moist, pharynx appears normal Neck: Supple, nontender Respiratory: Clear to auscultation, no signs of respiratory distress Cardiovascular: Normal S1, S2. No murmurs. Normal distal pulses in tibial and radial bilaterally. Abdomen: Soft, nontender, normal active bowel sounds present Musculoskeletal: Normal, Strength/ROM Intact Neurological: A&Ox3, awake and alert, mentation is normal, speech is fluent and appropriate Psychiatric: affect is normal, does not appear anxious or depressed Triage Information Reviewed: Yes Vital Signs On Initial Exam: Initial Vitals Temp Pulse Resp BP Pulse Ox 98.3 F 96 16 137/75 97 02/19/19 15:54 02/19/19 15:54 02/19/19 15:54 02/19/19 15:54 02/19/19 15:54 Vital Signs Reviewed: Yes Procedures - Sedation Patient Received Moderate/Deep Sedation with Procedure: No Diagnostics - Vital Signs Vital Signs Temp Pulse Resp BP Pulse Ox 02/19/19 17:26 98.7 F 78 16 128/69 93 02/19/19 15:54 98.3 F 96 16 137/75 97 - Laboratory Result Diagrams: 02/19/19 19:34 02/19/19 19:34 Lab Statement: Any lab studies that have been ordered have been reviewed, and results considered in the medical decision making process. - Radiology Chest X-ray Radiology Interpretation Completed By: ED Physician Summary of Radiographic Findings: Chest X-ray IMPRESSION: no acute process. Reviewed and interpreted by Dr. Turner, pending official radiology report. - EKG 16:10 Cardiac Rate: NL - 87 BPM EKG Rhythm: Sinus Rhythm ST Segment: Normal Ectopy: None Summary of EKG Findings: EKG at 16:10 shows NSR at 87 BPM, P waves, QRS complex , and T waves are within normal limits, T waves and intervals are normal, no ischemic changes. This is a normal EKG. Reviewed and interpreted by Dr. Turner. Complex Multi-Symp Course/Dx Course Of Treatment: Patient is a 78 y/o M presenting to the ED for a chief complaint of right-sided neck pain that radiates to the shoulder and began about 2 weeks ago. He reports that the pain worsens with movement and bearing weight on the right side. He describes the pain as muscular. Approximately one week ago, the right-sided neck pain began to radiate to the right upper back as well. On 02/16/19, he had an episode of shortness of breath and right-sided chest pain that has since resolved. At that time, the chest pain is described as having a sharp sensation that worsened with standing or sitting. He also admits a chronic dry cough at baseline. Patient denies fever, chills, nausea, vomiting, abdominal pain, weakness, numbness, or paresthesia. On 02/19/19, patient saw Dr. Orona who performed an EKG that showed tachycardia. He was sent to [facility] for further workup. PMHx is significant for HTN, HLD, arthritis, tinnitus, and anal cancer for which he received chemotherapy and radiation therapy 18 months ago. Patient is retired. On exam, unremarkable findings. Laboratory abnormal findings: Hct 41, MCV 95, MCH 33, BUN/creatinine ratio 27.7 , glucose 108. EKG at 16:10 shows NSR at 87 BPM, P waves, QRS complex, and T waves are within normal limits, T waves and intervals are normal, no ischemic changes. This is a normal EKG. Chest X-ray IMPRESSION: no acute process. Patient will be discharged with a diagnosis of cervical strain. Follow up with PCP in 2-3 days. - Diagnoses Provider Diagnoses: Cervical strain Discharge ED - Sign-Out/Discharge Documenting (check all that apply): Patient Departure - Discharge - Discharge Plan Condition: Good Disposition: HOME Patient Education Materials: Cervical Strain (ED) Referrals: Vinicio Montalvo MD [Primary Care Provider] - If Needed - Billing Disposition and Condition Condition: GOOD Disposition: Home - Attestation Statements Document Initiated by Dayna: Yes Documenting Dayna: Natalie Ojeda Provider For Whom Dayna is Documenting (Include Credential): Benny Turner MD Scribdallin Attestation: Natalie Daniel scribed for Benny Turner MD on 02/20/19 at 0623. Scribe Documentation Reviewed: Yes Provider Attestation: The documentation as recorded by the Natalie zarate accurately reflects the service I personally performed and the decisions made by me, Benny Turner MD Status of Scribe Document: Viewed
[2019-02-19 19:45] LABS: ABS Eosinophils 0.1 10^3/ul (0-0.6); ABS Lymphocytes 1.6 10^3/ul (1.0-4.8); ABS Monocytes 0.6 10^3/ul (0-0.8); ABS Neutrophils 3.7 10^3/ul (1.5-7.7); Eosinophil % 2.2 %; Hematocrit 41 % (42-52); Hemoglobin 14.1 g/dL (14.0-18.0); Lymphocyte % 26.7 %; Mean Corpuscular HGB Conc 35 g/dL (31-36); Mean Corpuscular Hemoglobin 33 pg (27-31); Mean Corpuscular Volume 95 fL (80-94); Mean Platelet Volume 7.4 fL (7.4-10.4); Nucleated Red Blood Cells % 0.1; Platelet Count 222 10^3/uL (150-450); Red Blood Count 4.29 10^6 /uL (4.18-5.48); Red Cell Distribution Width 14 % (10-15); White Blood Count 6.2 10^3/uL (3.5-10.8)
[2019-02-19 20:05] LABS: Troponin I 0.01 ng/mL (<0.03)
[2019-02-19 20:29] LABS: Albumin 4.2 g/dL (3.2-5.2); Albumin/Globulin Ratio 1.6 (1-3); BUN/Creatinine Ratio 27.7 (8-20); EGFR Non-African American 90.1 (>60); Globulin 2.6 g/dL (2-4); Potassium 4.5 mmol/L (3.5-5.0); Total Bilirubin 0.4 mg/dL (0.2-1.0); Total Protein 6.8 g/dL (6.4-8.9)
[2019-02-19 21:53] VITALS: BP 124/76
== END 2019-02-19 22:00 | disposition home or self-care (01) ==
LOC: ED 15:37
DX: S16.1XXA Strain of muscle, fascia and tendon at neck level, initial encounter (principal); X58.XXXA Exposure to other specified factors, initial encounter; Y92.9 Unspecified place or not applicable; E78.00 Pure hypercholesterolemia, unspecified; I10 Essential (primary) hypertension; Z87.442 Personal history of urinary calculi; Z85.048 Personal history of other malignant neoplasm of rectum, rectosigmoid junction, and anus; Z79.899 Other long term (current) drug therapy
CPT/HCPCS: 36415; 71046; 80053; 83605; 84484; 85025; 85379; 93005; 99283